=== PATIENT | male | born 1990 | race Caucasian/White ===

== ENCOUNTER 2017-07-04 19:12 | Emergency (ER) | payer MEDICAID, SELFPAY ==
[2017-07-04 19:18] VITALS: BP 156/102; PULSE 100; RESP 18; TEMP 36.8; O2SAT 97; BMI 18.8
[2017-07-04 19:46] LABS: Microscopic, Urine URINE MICROSCOPIC (MICROSCOPIC)
--- NOTE | 2017-07-04 19:47 | CT_ITS ---
CT abdomen pelvis wo con CLINICAL INDICATION: Right flank pain with hematuria ITS.REASON: ABD PAIN ORDERING PHYSICIAN: Regina Dorsey MD PATIENT AGE: 27 years COMPARISON: None TECHNIQUE: Axial images obtained with sagittal and coronal reformats. PROCEDURE: Oral Contrast: None IV Contrast: None . FINDINGS: Lung bases are clear. The liver, gallbladder, spleen, adrenal glands, and pancreas have an unremarkable unenhanced CT appearance. No renal or ureteral calculi or hydronephrosis. No calculi evident within the urinary bladder. Nonspecific nonobstructive bowel gas pattern. No free air. No evidence of appendicitis or diverticulitis. No acute bony anomalies. IMPRESSION: 1. No acute finding. 2. No evidence of obstructing renal or ureteral calculi.
[2017-07-04 19:49] LABS: Basophils % 0.4 % (0.1-2.0); Eosinophils # 0.1 K/mm3 (0.0-0.4); Hematocrit 42.9 % (42.0-52.0); Lymphocytes # 2.3 K/mm3 (0.7-4.5); Lymphocytes % 29.5 K/mm3 (10-50); Mean Corpuscular HGB Conc 35.1 g/dL (31.8-35.4); Mean Corpuscular Hemoglobin 31.7 pg (27.0-31.2); Mean Corpuscular Volume 90.5 fl (80-94); Mean Platelet Volume 8.7 fl (7.4-10.4); Monocytes # 0.5 K/mm3 (0.1-1.0); Monocytes % 6.5 % (1.7-9.3); Neutrophils % 62.7 % (37.0-80.0); Platelet Count 240 K/mm3 (142-424); Red Blood Count 4.74 M/mm3 (4.60-6.20); Red Cell Distribution Width 12.4 % (11.5-17.5); White Blood Count 7.9 K/mm3 (4.8-10.8)
[2017-07-04 19:54] LABS: Appearance,Urine CLEAR (Clear); Bilirubin,Urine Negative (Negative); Blood, Urine Negative (Negative); Color,Urine YELLOW (Yellow); Glucose,Urine (UA) Negative (Negative); Ketones,Urine Negative (Negative); Leukocyte Esterase,Urine Negative (Negative); Nitrate,Urine Negative (Negative); PH,Urine 6.5 (5.0-8.5); Protein,Urine Negative (Negative); Specific Gravity, Urine <= 1.005 (1.005-1.030); Urobilinogen,Urine 0.2 EU/dl (0.2)
--- NOTE | 2017-07-04 20:00 | PC.NURSE ---
PT TO CT
[2017-07-04 20:07] LABS: Bacteria,Urine Trace /lpf
[2017-07-04 20:11] LABS: Alanine Aminotransferase 18 U/L (12-78); Albumin Level 4.5 gm/dL (3.4-5.0); Albumin/Globulin Ratio 1.6 (1.1-1.8); Alkaline Phosphatase 70 U/L (46-116); Anion Gap 14.9 mEq/L (5-15); Bilirubin,Total 0.5 mg/dL (0.2-1.0); Blood Urea Nitrogen 12 mg/dL (7-18); Calcium 8.9 mg/dL (8.5-10.1); Carbon Dioxide 27 mmol/L (21.0-32.0); Chloride 105 mmol/L (98-107); Creatinine Clearance Estimated 100 mL/min (0-300); Creatinine,Serum 0.97 mg/dL (0.70-1.30); Estimated Glomerular Filt Rate 94 ml/min (>60); GFR (African American) 113 ML/MIN (>60); Globulin 2.8 gm/dl (1.3-3.2); Glucose 100 mg/dL (74-106); Sodium 143 mmol/L (136-145); Total Protein,Serum 7.3 gm/dL (6.4-8.2)
--- NOTE | 2017-07-04 20:13 | HMH.EDGENADL ---
ED Disposition Clinical Impression: Abdominal pain Qualifiers: Abdominal location: unspecified location Qualified Code(s): R10.9 - Unspecified abdominal pain Disposition: Home, Self-Care Condition on Discharge: Good Instructions: DI for Abdominal Pain-Adult Additional Instructions: call pcp in am for follow up - Critical Care Critical Care Time: No Attestation: On , the high probability of a clinically significant, sudden or life threatening deterioration of the following system(s) required my full and direct attention, intervention and personal management. The time I documented below is in addition to time spent performing reported procedures but includes the following listed in this critical care notation. Medical Decision Making - Medical Records Medical records reviewed: Yes: I reviewed the patient's medical records. Vital Signs: 07/04/17 19:18 07/04/17 20:32 Temperature 98.2 F 97.8 F Temperature Source Oral Oral Pulse Rate [Right Radial] 100 H 80 Respiratory Rate 18 18 Blood Pressure [Right Arm] 156/102 146/90 Blood Pressure Mean [Right Arm] 120 108 Blood Pressure Source [Right Arm] Automatic Cuff Manual Cuff/ Doppler Blood Pressure Position [Right Arm] Sitting Sitting 02 Sat by Pulse Oximetry 97 98 Oxygen Delivery Method Room Air Room Air - Lab Data Lab results reviewed: Yes: I reviewed the patient's lab results. Lab Results 07/04/17 19:35: Urine Color Yellow, Urine Appearance Clear, Urine pH 6.5, Ur Specific [place] <= 1.005, Urine Protein Negative, Urine Glucose (UA) Negative, Urine Ketones Negative, Urine Blood Negative, Urine Nitrate Negative, Urine Bilirubin Negative, Urine Urobilinogen 0.2, Ur Leukocyte Esterase Negative, Urine RBC None, Urine WBC None, Ur Squamous Epith Cells None, Urine Bacteria Trace 07/04/17 19:35: WBC 7.9, RBC 4.74, Hgb 15.0, Hct 42.9, MCV 90.5, MCH 31.7 H, MCHC 35.1, RDW 12.4, Plt Count 240, MPV 8.7, Neut % (Auto) 62.7, Lymph % (Auto) 29.5, [place] % (Auto) 6.5, Eos % (Auto) 1.0, Baso % (Auto) 0.4, Neut # (Auto) 5.0, Lymph # (Auto) 2.3, [place] # (Auto) 0.5, Eos # (Auto) 0.1, Baso # (Auto) 0.0 07/04/17 19:35: Sodium 143, Potassium 3.9, Chloride 105, Carbon Dioxide 27, Anion Gap 14.9, BUN 12, Creatinine 0.97, Estimated Creat Clear 100, Estimated GFR 94, Est GFR ( Amer) 113, Glucose 100, Calcium 8.9, Total Bilirubin 0.5, AST 18, ALT 18, Alkaline Phosphatase 70, Total Protein 7.3, Albumin 4.5, Globulin 2.8, Albumin/Globulin Ratio 1.6 07/04/17 19:35: Influenza Type A Ag Negative, Influenza Type B Ag Negative Result diagrams: 07/04/17 19:35 07/04/17 19:35 Orders (Tests/Meds): ORDERS Category Date Time Status CT abdomen pelvis wo con Routine Cat Scan 07/04/17 19:[address] abdomen/pelvis request [CT Request abd/pelvis] Exams 07/04/17 19:33 Ordered Stat - CT Data CT Scan: Abdomen, Pelvis Time Received: 21:[address] Reviewed: Yes: I have viewed the radiologist's interpretation Preliminary Findings: Normal/NAD - Uriel Inquiry Pt receiving controlled substance: No General Adult HPI - General Chief complaint: PAIN Stated complaint: dizziness, blood in urine Time Seen by Provider: 07/04/17 20:14 Mode of Arrival: Ambulatory Source of Information: Patient, Medical Record Limitations: No Limitations Description of Symptoms (Recalled from ER Triage Doc. by RN): PT REPORTS ABDOMINAL PAIN, HEMATURIA, DYSURIA WITH PELLETS IN HIS URINE. - History of Present Illness HPI narrative: pt with vomiting with repoted blood in bowels and urine with no rash Onset (ago): day(s) Radiation: non-radiation Severity: moderate Associated symptoms: nausea/vomiting, weakness. negative: fever/chills - Related Data Home Medications Medication Instructions Recorded Confirmed No Known Home Medications [No 07/04/17 07/04/17 Known Home Medications] Allergies Allergy/AdvReac Type Severity Reaction Status Date / Time No Known Allergies Allergy
[2017-07-04 20:17] LABS: Potassium 3.9 mmoL/L (3.5-5.1)
--- NOTE | 2017-07-04 20:17 | ED_ITS ---
ED Disposition Clinical Impression: Abdominal pain Qualifiers: Abdominal location: unspecified location Qualified Code(s): R10.9 - Unspecified abdominal pain Disposition: Home, Self-Care Condition on Discharge: Good Instructions: DI for Abdominal Pain-Adult Additional Instructions: call pcp in am for follow up - Critical Care Critical Care Time: No Attestation: On , the high probability of a clinically significant, sudden or life threatening deterioration of the following system(s) required my full and direct attention, intervention and personal management. The time I documented below is in addition to time spent performing reported procedures but includes the following listed in this critical care notation. Medical Decision Making - Medical Records Medical records reviewed: Yes: I reviewed the patient's medical records. Vital Signs: 07/04/17 19:18 07/04/17 20:32 Temperature 98.2 F 97.8 F Temperature Source Oral Oral Pulse Rate [Right Radial] 100 H 80 Respiratory Rate 18 18 Blood Pressure [Right Arm] 156/102 146/90 Blood Pressure Mean [Right Arm] 120 108 Blood Pressure Source [Right Arm] Automatic Cuff Manual Cuff/ Doppler Blood Pressure Position [Right Arm] Sitting Sitting 02 Sat by Pulse Oximetry 97 98 Oxygen Delivery Method Room Air Room Air - Lab Data Lab results reviewed: Yes: I reviewed the patient's lab results. Lab Results 07/04/17 19:35: Urine Color Yellow, Urine Appearance Clear, Urine pH 6.5, Ur Specific [place] <= 1.005, Urine Protein Negative, Urine Glucose (UA) Negative, Urine Ketones Negative, Urine Blood Negative, Urine Nitrate Negative, Urine Bilirubin Negative, Urine Urobilinogen 0.2, Ur Leukocyte Esterase Negative, Urine RBC None, Urine WBC None, Ur Squamous Epith Cells None, Urine Bacteria Trace 07/04/17 19:35: WBC 7.9, RBC 4.74, Hgb 15.0, Hct 42.9, MCV 90.5, MCH 31.7 H, MCHC 35.1, RDW 12.4, Plt Count 240, MPV 8.7, Neut % (Auto) 62.7, Lymph % (Auto) 29.5, [place] % (Auto) 6.5, Eos % (Auto) 1.0, Baso % (Auto) 0.4, Neut # (Auto) 5.0 , Lymph # (Auto) 2.3, [place] # (Auto) 0.5, Eos # (Auto) 0.1, Baso # (Auto) 0.0 07/04/17 19:35: Sodium 143, Potassium 3.9, Chloride 105, Carbon Dioxide 27, Anion Gap 14.9, BUN 12, Creatinine 0.97, Estimated Creat Clear 100, Estimated GFR 94, Est GFR ( Amer) 113, Glucose 100, Calcium 8.9, Total Bilirubin 0.5, AST 18, ALT 18, Alkaline Phosphatase 70, Total Protein 7.3, Albumin 4.5, Globulin 2.8, Albumin/Globulin Ratio 1.6 07/04/17 19:35: Influenza Type A Ag Negative, Influenza Type B Ag Negative Result diagrams: 07/04/17 19:35 07/04/17 19:35 Orders (Tests/Meds): ORDERS Category Date Time Status CT abdomen pelvis wo con Routine Cat Scan 07/04/17 19:[address] abdomen/pelvis request [CT Request abd/pelvis] Exams 07/04/17 19:33 Ordered Stat - CT Data CT Scan: Abdomen, Pelvis Time Received: 21:[address] Reviewed: Yes: I have viewed the radiologist's interpretation Preliminary Findings: Normal/NAD - Uriel Inquiry Pt receiving controlled substance: No General Adult HPI - General Chief complaint: PAIN Stated complaint: dizziness, blood in urine Time Seen by Provider: 07/04/17 20:14 Mode of Arrival: Ambulatory Source of Information: Patient, Medical Record Limitations: No Limitations Description of Symptoms (Recalled from ER Triage Doc. by RN): PT REPORTS ABDOMINAL PAIN, HEMATURIA, DYSURIA WITH PELLETS I
[2017-07-04 20:18] LABS: Aspartate Amino Transferase 18 U/L (15-37)
[2017-07-04 20:32] VITALS: BP 146/90; PULSE 80; RESP 18; TEMP 36.6; O2SAT 98
== END 2017-07-04 21:28 | disposition home or self-care (01) ==
PROVIDERS: Emergency Provider Emergency Medicine; Family Provider Emergency Medicine
DX: R10.9 Unspecified abdominal pain (principal)
CPT/HCPCS: 74176; 80053; 81001; 85025; 87275; 87276; 99284

== ENCOUNTER → 2018-11-28 18:50 | Outpatient (CLI) | payer MEDICAID, SELFPAY ==
[2018-11-28 19:21] LABS: Alanine Aminotransferase 23 U/L (12-78); Albumin Level 4.7 gm/dL (3.4-5.0); Albumin/Globulin Ratio 1.5 (1.1-1.8); Alkaline Phosphatase 70 U/L (46-116); Anion Gap 13.7 mEq/L (5-15); Aspartate Amino Transferase 14 U/L (15-37); Bilirubin,Total 0.7 mg/dL (0.2-1.0); Blood Urea Nitrogen 20 mg/dL (7-18); Calcium 9.6 mg/dL (8.5-10.1); Carbon Dioxide 28 mmol/L (21.0-32.0); Chloride 103 mmol/L (98-107); Chol/HDL Ratio 3.4 (1-3.5); Cholesterol 168 mg/dL (140-200); Creatinine,Serum 1.02 mg/dL (0.70-1.30); Estimated Glomerular Filt Rate 88 ml/min (>60); Free T4 (Free Thyroxine) 1.02 ng/dl (0.76-1.46); GFR (African American) 106 ML/MIN (>60); Globulin 3.2 gm/dl (1.3-3.2); Glucose 88 mg/dL (74-106); HDL Cholesterol 50 mg/dL (27-67); LDL Cholesterol 100 mg/dL (0-130); Potassium 4.7 mmoL/L (3.5-5.1); Sodium 140 mmol/L (136-145); Thyroid Stimulating Hormone 1.78 uIU/ml (0.358-3.740); Total Protein,Serum 7.9 gm/dL (6.4-8.2); Triglycerides 92 mg/dL (30-200); VLDL Cholesterol 18 mg/dL (0-40)
[2018-11-28 19:26] LABS: Basophils % 0.1 % (0.1-2.0); Eosinophils % 0.4 % (0.1-12.0); Hematocrit 44.6 % (42.0-52.0); Hemoglobin 14.9 g/dL (14.1-18.0); Lymphocytes # 1.2 K/mm3 (0.7-4.5); Lymphocytes % 18.3 % (10-50); Mean Corpuscular HGB Conc 33.5 g/dL (31.8-35.4); Mean Corpuscular Hemoglobin 30.3 pg (27.0-31.2); Mean Corpuscular Volume 90.4 fl (80-94); Mean Platelet Volume 10.5 fl (7.4-10.4); Monocytes # 0.6 K/mm3 (0.1-1.0); Monocytes % 8.9 % (1.7-9.3); Neutrophils # 4.8 K/mm3 (1.8-7.8); Neutrophils % 72.4 % (37.0-80.0); Platelet Count 221 K/mm3 (142-424); Red Blood Count 4.93 M/mm3 (4.60-6.20); Red Cell Distribution Width 12.6 % (11.5-17.5); White Blood Count 6.6 K/mm3 (4.8-10.8)
[2018-11-30 07:18] LABS: Hep A Ab, IgM Negative (Negative); Hepatitis B Core Antibody IgM Negative (Negative); Hepatitis B Surface Antigen Negative (Negative)
[2018-11-30 20:48] LABS: Hepatitis C Antibody <0.1 s/co ratio (0.0-0.9); Vitamin D 25 Hydroxy 41.6 ng/mL (30.0-100.0)
== END ==
PROVIDERS: Visit Provider Emergency Medicine
DX: R10.9 Unspecified abdominal pain (principal)
CPT/HCPCS: 80053; 80061; 80074; 82652; 84439; 84443; 85025

== ENCOUNTER → 2019-03-19 11:43 | Outpatient (CLI) | payer MEDICAID, SELFPAY ==
--- NOTE | 2019-03-19 | ECG_ITS ---
APPROVED REPORT Exam: Resting ECG HR:64 bpm ECG Measurements Heart Rate 64 AXES MT 144 P 69 QRSd 86 QRS 80 QT 384 T 59 QTc 396 <Conclusion> Normal sinus rhythm Normal ECG Electronically signed by : Bernabe Call, 03/22/2019 09:47:43
--- NOTE | 2019-03-19 12:07 | XR_ITS ---
PROCEDURE: XR CHEST 2V CLINICAL HISTORY: anxiety Chest pain COMPARISON: CXR CHEST(2 VIEWS-NOT PORTABLE) from 03/23/2014 CXR CHEST(2 VIEWS-NOT PORTABLE) from 11/16/2014 CXR CHEST(2 VIEWS-NOT PORTABLE) from 01/15/2015 FINDINGS: The cardiomediastinal silhouette and pulmonary vascularity are within normal limits. There is an oval 12 x 6 mm nodule in the right upper lobe. This is noncalcified. The remaining lungs are clear. No acute bony anomalies. No acute bony abnormalities. IMPRESSION: Indeterminate 12 mm nodule right upper lobe. Suggest chest CT with contrast for further evaluation Dictated by: Emerson Arguello MD 03/19/2019 12:33 Electronically signed by Emerson Arguello MD in [place] 03/19/2019 12:33
[2019-03-19 12:42] LABS: Basophils % 0.3 % (0.1-2.0); Eosinophils # 0.1 K/mm3 (0.0-0.4); Eosinophils % 1.5 % (0.1-12.0); Hemoglobin 13.7 g/dL (14.1-18.0); Lymphocytes # 1.6 K/mm3 (0.7-4.5); Lymphocytes % 24.7 % (10-50); Mean Corpuscular HGB Conc 32.5 g/dL (31.8-35.4); Mean Corpuscular Hemoglobin 31.5 pg (27.0-31.2); Mean Corpuscular Volume 96.9 fl (80-94); Mean Platelet Volume 9.3 fl (7.4-10.4); Monocytes # 0.4 K/mm3 (0.1-1.0); Monocytes % 6.8 % (1.7-9.3); Neutrophils # 4.4 K/mm3 (1.8-7.8); Neutrophils % 66.8 % (37.0-80.0); Platelet Count 204 K/mm3 (142-424); Red Blood Count 4.33 M/mm3 (4.60-6.20); Red Cell Distribution Width 12.7 % (11.5-17.5); White Blood Count 6.6 K/mm3 (4.8-10.8)
[2019-03-19 13:31] LABS: Alanine Aminotransferase 15 U/L (12-78); Albumin Level 3.9 gm/dL (3.4-5.0); Albumin/Globulin Ratio 1.4 (1.1-1.8); Alkaline Phosphatase 58 U/L (46-116); Anion Gap 12.2 mEq/L (5-15); Aspartate Amino Transferase 18 U/L (15-37); Bilirubin,Total 0.3 mg/dL (0.2-1.0); Blood Urea Nitrogen 13 mg/dL (7-18); Calcium 9.2 mg/dL (8.5-10.1); Carbon Dioxide 28 mmol/L (21.0-32.0); Chloride 105 mmol/L (98-107); Creatinine,Serum 0.97 mg/dL (0.70-1.30); Estimated Glomerular Filt Rate 92 ml/min (>60); GFR (African American) 112 ML/MIN (>60); Globulin 2.8 gm/dl (1.3-3.2); Glucose 90 mg/dL (74-106); Potassium 4.2 mmoL/L (3.5-5.1); Sodium 141 mmol/L (136-145); Total Protein,Serum 6.7 gm/dL (6.4-8.2); Troponin I < 0.02 ng/ml (0.00-0.06)
[2019-03-21 17:47] LABS: Ferritin 65 ng/mL (8-388)
[2019-03-23 05:08] LABS: Iron 57 ug/dL (38-169); UIBC 191 ug/dL (111-343)
[2019-03-23 13:48] LABS: Iron Saturation 23 % (15-55)
== END ==
PROVIDERS: Physician Assistant; PCP Emergency Medicine; Visit Provider Emergency Medicine
DX: R07.9 Chest pain, unspecified (principal); F41.9 Anxiety disorder, unspecified; D64.9 Anemia, unspecified
CPT/HCPCS: 36415; 71046; 80053; 82728; 83540; 83550; 84484; 85025; 93005

== ENCOUNTER → 2019-04-03 12:15 | Outpatient (CLI) | payer MEDICAID, SELFPAY ==
--- NOTE | 2019-04-03 12:16 | CA_ITS ---
APPROVED REPORT EXAM: Comprehensive 2D, Doppler, and color-flow Echocardiogram Pediatrician/Medical Doctor: Sandra Will RDCS Ht: 5 ft 11 in Wt: 140lbs BSA: 1.81 BP: 110/68 mmHg Indications: Chest Pain, Murmur, Shortness of Breath, Hypertension/HDD 2D Dimensions LVOT 2.20 cm (M/F) 1.5-2.5 M-Mode Dimensions RVDd 2.00 cm (0.9-2.6) LA Diam 2.90 cm (1.9-4.0) LVDd 5.40 cm (3.5-5.7) Ao Diam 3.00 cm (2.0-3.7) LVDs 4.20 cm (3.5-5.7) AV Cusp 2.20 cm (1.5-2.6) IVSd 0.70 cm (0.6-1.1) PWd 0.80 cm (0.6-1.1) EF (Teich) 44.30% FS 22.20% EDV (Teich) 141.00 mL ESV (Teich) 78.60 mL LV Diastology E/A Ratio 1.1 MED E' 8.58 (< 7 cm/sec) E'/MED E' Ratio 6.80 (>14) LAT E' 13.90 (<10 cm/sec) E/LAT E' Ratio 4.20 (>14) Mitral Valve MV E Max Oliver. 58.70 (40-130 cm/s) MV A Velocity 51.30 (40-130 cm/s) E/A Ratio 1.10 Left Ventricle Left atrium is normal size, left ventricle is normal size, there is no concentric left ventricular hypertrophy, visually estimated ejection fraction 55% with no regional wall motion abnormality, diastolic parameters are within normal range. Right Ventricle Right atrium and right ventricular normal size and contractility. Aortic Valve Aortic valve is grossly normal, there is no aortic stenosis aortic insufficiency. Mitral Valve Mitral valve is grossly normal, there is no mitral stenosis, there is mild mitral regurgitation. Tricuspid Valve Tricuspid valve is grossly normal, there is mild tricuspid regurgitation. Pulmonic Valve Pulmonic valve is grossly normal. Great Vessels Aortic root is normal size. Pericardium No significant pericardial effusion noted. Conclusion 1. Normal left ventricular size, preserved left ventricular systolic function, visually estimated ejection fraction 55% with no regional wall motion abnormality, diastolic parameters are within normal range. 2. Mild mitral and tricuspid regurgitation 3. No significant pericardial effusion noted. Electronically signed by : Kurtis Love, 04/04/2019 14:46:14
== END ==
PROVIDERS: PCP Emergency Medicine; Visit Provider Emergency Medicine
DX: R01.1 Cardiac murmur, unspecified (principal); R07.9 Chest pain, unspecified
CPT/HCPCS: 93306

== ENCOUNTER → 2019-04-10 09:12 | Outpatient (CLI) | payer MEDICAID, SELFPAY ==
--- NOTE | 2019-04-10 09:14 | CT_ITS ---
PROCEDURE: CT CHEST W CON CLINCAL INDICATION: indeterminate nodule Indeterminate pulmonary nodule, abnormal chest x-ray COMPARISON: [facility] CT abdomen pelvis wo con from 07/04/2017 XR CHEST 2V from 03/19/2019 TECHNIQUE: IV Contrast: 75ml Optiray 350 Axial images obtained with sagittal and coronal reformats. All CT scans at the facility use one or more dose reduction, viz: automated exposure control, ma/kV adjustment per patient size (including targeted exams where dose is matched to indication, i.e. head), or iterative reconstruction technique. FINDINGS: HEART: Unremarkable. Normal heart size. No significant pericardial effusion. MEDIASTINAL AND HILAR STRUCTURES: No mediastinal or hilar mass evident. No dominant adenopathy. PULMONARY ARTERIES: No pulmonary embolus evident. AORTA: No acute finding. No thoracic aortic aneurysm or dissection evident. LUNGS: THERE IS A 7 MM NODULE WITHIN THE RIGHT UPPER LOBE POSTERIORLY CORRESPONDING TO THE RECENTLY MENTION RADIOGRAPHIC ABNORMALITY. THE NODULE DOES CONTAIN CALCIFICATION AND IS CONSISTENT WITH A GRANULOMA. THERE IS AN ADDITIONAL NODULE IN THE LEFT APEX MEASURING 6 X 4 MM ALSO CONTAINING CALCIFICATION CONSISTENT WITH A GRANULOMA. PLEURAL SPACES: No significant effusion. No evidence of pneumothorax. BONY STRUCTURES: No acute bony abnormalities apparent. LYMPH NODES: No enlarged lymph nodes evident. 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 This is on the edge of the imaging field. This could be confirmed with CT angiography of the abdominal aorta if clinically desired. ADDITIONAL FINDINGS: No other significant abnormalities. IMPRESSION: 1. Right upper and left upper lobe nodules are present and are consistent with partially calcified granulomas. 2. 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
== END ==
PROVIDERS: PCP Emergency Medicine; Visit Provider Physician Assistant
DX: R91.1 Solitary pulmonary nodule (principal)
CPT/HCPCS: 71260; Q9967

== ENCOUNTER 2021-04-09 02:37 | Emergency (ER) | payer MEDICAID, SELFPAY ==
[2021-04-09] VITALS (13 sets, daily range): BP systolic 92–119; BP diastolic 58–87; PULSE 69–82; RESP 16; TEMP 36.7; O2SAT 96–98; BMI 23.6
--- NOTE | 2021-04-09 02:51 | HMH.EDGENADL ---
ED Disposition Clinical Impression: Alcoholic intoxication Qualifiers: Complication of substance-induced condition: uncomplicated Qualified Code(s): F10.920 - Alcohol use, unspecified with intoxication, uncomplicated Disposition: Home, Self-Care Condition on Discharge: Good Referrals: Abhinav Medina MD [Primary Care Provider] - 3 days Time of Disposition: 07:15 - Critical Care Critical Care Time: No Attestation: On , the high probability of a clinically significant, sudden or life threatening deterioration of the following system(s) required my full and direct attention, intervention and personal management. The time I documented below is in addition to time spent performing reported procedures but includes the following listed in this critical care notation. Medical Decision Making - Medical Records Medical records reviewed: Yes: I reviewed the patient's medical records. - Uriel Inquiry Pt receiving controlled substance: No Vital Signs: 04/09/21 02:37 04/09/21 03:00 04/09/21 03:30 Pulse Rate 79 71 Pulse Rate [Apical] 79 Respiratory Rate 16 Blood Pressure 108/78 L 103/67 L Blood Pressure [Right Arm] 119/87 Blood Pressure Mean 86 79 Blood Pressure Mean [Right Arm] 97 Blood Pressure Source [Right Arm] Automatic Cuff Blood Pressure Position [Right Arm] Sitting 02 Sat by Pulse Oximetry 98 96 97 Oxygen Delivery Method Room Air Room Air Room Air 04/09/21 04:00 04/09/21 04:30 04/09/21 05:00 Pulse Rate 75 78 72 Pulse Rate [Apical] Respiratory Rate Blood Pressure 106/74 L 100/72 L 92/63 L Blood Pressure [Right Arm] Blood Pressure Mean 86 80 72 Blood Pressure Mean [Right Arm] Blood Pressure Source [Right Arm] Blood Pressure Position [Right Arm] 02 Sat by Pulse Oximetry 98 96 98 Oxygen Delivery Method Room Air Room Air Room Air 04/09/21 05:12 04/09/21 05:31 04/09/21 06:00 Pulse Rate 77 71 69 Pulse Rate [Apical] Respiratory Rate Blood Pressure 101/58 L 112/71 105/70 L Blood Pressure [Right Arm] Blood Pressure Mean 74 84 79 Blood Pressure Mean [Right Arm] Blood Pressure Source [Right Arm] Blood Pressure Position [Right Arm] 02 Sat by Pulse Oximetry 97 96 97 Oxygen Delivery Method Room Air Room Air Room Air 04/09/21 06:30 Pulse Rate 73 Pulse Rate [Apical] Respiratory Rate Blood Pressure 103/69 L Blood Pressure [Right Arm] Blood Pressure Mean 86 Blood Pressure Mean [Right Arm] Blood Pressure Source [Right Arm] Blood Pressure Position [Right Arm] 02 Sat by Pulse Oximetry 98 Oxygen Delivery Method Room Air - Lab Data Lab results reviewed: Yes: I reviewed the patient's lab results. Lab Results 04/09/21 04:00: WBC 6.1, RBC 4.10 L, Hgb 13.2 L, Hct 39.1 L, MCV 95.4 H, MCH 32.2 H, MCHC 33.7, RDW 13.2, Plt Count 247, MPV 8.4, Neut % (Auto) 74.3, Lymph % (Auto) 19.5, [place] % (Auto) 5.6, Eos % (Auto) 0.3, Baso % (Auto) 0.3, Neut # (Auto) 4.5, Lymph # (Auto) 1.2, [place] # (Auto) 0.3, Eos # (Auto) 0.0, Baso # (Auto) 0.0 04/09/21 04:00: Sodium 145, Potassium 3.6, Chloride 106, Carbon Dioxide 28, Anion Gap 14.6, BUN 9, Creatinine 0.80, Estimated Creat Clear 134, Estimated GFR 114, Est GFR ( Amer) 137, Glucose 125 H, Calcium 8.3 L, Total Bilirubin 0.1 L, AST 22, ALT 12, Alkaline Phosphatase 57, Total Protein 6.3, Albumin 4.0, Globulin 2.3, Albumin/Globulin Ratio 1.7 04/09/21 04:00: Plasma/Serum Alcohol 168 H Result diagrams: 04/09/21 04:00 04/09/21 04:00 Orders (Tests/Meds): ED MEDICATIONS Discontinued Medications Generic Name Dose Route Start Last Admin Trade Name Freq PRN Reason Stop Dose Admin Sodium Chloride 1,000 mls @ 999 mls/hr 04/09/21 03:00 04/09/21 03:45 Sod Chlor 0.9% 1000ml Bag IV 04/09/21 04:00 999 mls/hr .Q1H1M AMY Administration Sodium Chloride 1,000 mls @ 999 mls/hr 04/09/21 05:30 04/09/21 05:31 Sod Chlor 0.9% 1000ml Bag IV 04/09/21 06:30 999 mls/hr .Q1H1M AMY Administration Medical
[2021-04-09 04:10] LABS: Basophils % 0.3 % (0.1-2.0); Eosinophils % 0.3 % (0.1-12.0); Hematocrit 39.1 % (42.0-52.0); Hemoglobin 13.2 g/dL (14.1-18.0); Lymphocytes # 1.2 K/mm3 (0.7-4.5); Lymphocytes % 19.5 % (10-50); Mean Corpuscular HGB Conc 33.7 g/dL (31.8-35.4); Mean Corpuscular Hemoglobin 32.2 pg (27.0-31.2); Mean Corpuscular Volume 95.4 fl (80-94); Mean Platelet Volume 8.4 fl (7.4-10.4); Monocytes # 0.3 K/mm3 (0.1-1.0); Monocytes % 5.6 % (1.7-9.3); Neutrophils # 4.5 K/mm3 (1.8-7.8); Neutrophils % 74.3 % (37.0-80.0); Platelet Count 247 K/mm3 (142-424); Red Cell Distribution Width 13.2 % (11.5-17.5); White Blood Count 6.1 K/mm3 (4.8-10.8)
[2021-04-09 04:14] LABS: Chloride 106 mmol/L (98-107); Potassium 3.6 mmoL/L (3.5-5.1); Sodium 145 mmol/L (136-145)
[2021-04-09 04:17] LABS: Alanine Aminotransferase 12 U/L (12-78); Albumin/Globulin Ratio 1.7 (1.1-1.8); Alkaline Phosphatase 57 U/L (38-126); Anion Gap 14.6 mEq/L (5-15); Aspartate Amino Transferase 22 U/L (17-59); Blood Urea Nitrogen 9 mg/dl (9-20); Calcium 8.3 mg/dl (8.4-10.2); Carbon Dioxide 28 mmol/L (22.0-30.0); Creatinine Clearance Estimated 134 mL/min (50-200); Estimated Glomerular Filt Rate 114 ml/min (>60); GFR (African American) 137 ML/MIN (>60); Globulin 2.3 g/dL (1.3-3.2); Glucose 125 mg/dl (74-100); Total Protein,Serum 6.3 g/dl (6.3-8.2)
[2021-04-09 04:18] LABS: Bilirubin,Total 0.1 mg/dl (0.2-1.3)
[2021-04-09 04:20] LABS: Ethyl Alcohol 168 mg/dl (0-10)
--- NOTE | 2021-04-09 07:22 | PC.NURSE ---
Notified Nanci Rudd, patients emergency contact to request she come and pick him up as he is now deemed safe to discharge to home per md.
--- NOTE | 2021-04-09 07:22 | PC.NURSE ---
called pt's ride, they will be here ~ 15min.
== END 2021-04-09 08:11 | disposition home or self-care (01) ==
PROVIDERS: Emergency Provider Family Medicine; PCP Emergency Medicine
DX: F10.920 Alcohol use, unspecified with intoxication, uncomplicated (principal)
CPT/HCPCS: 80053; 85025; 96365; 96366; 99282

== ENCOUNTER 2021-12-15 21:39 | Emergency (ER) | payer MEDICAID, SELFPAY ==
[2021-12-15 21:37] VITALS: BP 147/98; PULSE 88; RESP 18; TEMP 37.1; O2SAT 97; BMI 20.2
--- NOTE | 2021-12-15 23:08 | HMH.EDANIB ---
ED Disposition Clinical Impression: Dog bite Qualifiers: Encounter type: initial encounter Qualified Code(s): W54.0XXA - Bitten by dog, initial encounter Disposition: Home, Self-Care Condition on Discharge: Good Instructions: Animal Bites Additional Instructions: keep clean and see pcp for follow up Prescriptions: Amoxicillin/Potassium Clav [Augmentin 500mg tab] 500 mg PO BID #20 tab Transmission Status: Pending to [facility] Ketorolac Tromethamine [Toradol 10mg tablet] 10 mg PO Q6HP PRN #8 tab MDD 40mg/day PRN Reason: Moderate To Severe Pain Transmission Status: Pending to [facility] Referrals: Abhinav Medina MD [Primary Care Provider] - - Critical Care Critical Care Time: No Attestation: On 12/15/21, the high probability of a clinically significant, sudden or life threatening deterioration of the following system(s) required my full and direct attention, intervention and personal management. The time I documented below is in addition to time spent performing reported procedures but includes the following listed in this critical care notation. Medical Decision Making - Medical Records Medical records reviewed: Yes: I reviewed the patient's medical records. - Uriel Inquiry Pt receiving controlled substance: No Vital Signs: 12/15/21 21:37 Temperature 98.7 F Temperature Source Oral Pulse Rate [Left] 88 Respiratory Rate 18 Blood Pressure [Left Arm] 147/98 H Blood Pressure Mean [Left Arm] 114 02 Sat by Pulse Oximetry 97 Oxygen Delivery Method Room Air Orders (Tests/Meds): ED MEDICATIONS Discontinued Medications Generic Name Dose Route Start Last Admin Trade Name Freq PRN Reason Stop Dose Admin Acetaminophen/Codeine Phosphate 1 packet 12/15/21 23:06 12/15/21 23:06 Acetaminophen 300mg W/Codeine 30mg Take Home Pack (6) PO 12/15/21 23:07 1 packet ONCE ONE Administration Amoxicillin/Clavulanate Potassium 1 each 12/15/21 23:02 12/15/21 23:07 Amoxicillin/Pot Clavulan 500mg Tablet PO 12/15/21 23:03 1 each ONCE ONE Administration Ketorolac Tromethamine 60 mg 12/15/21 23:02 12/15/21 23:06 Ketorolac 60mg/2ml Vial IM 12/15/21 23:03 60 mg ONCE ONE Administration Medical Decision Narrative: known dog with bite - no sutures and will cover with abx Animal Bite HPI - General Chief Complaint: Animal Bite Stated Complaint: dog bite Time Seen by Provider: 12/15/21 22:00 Mode of Arrival: EMS Source of Information: Patient, EMS, Medical Record Limitations: No Limitations Description of Symptoms (Recalled from ER Triage Doc. by RN): pt stated that he was bit by a blue pit bull and that it grabbed him by the right arm then bit him on the right but cheek. pt has 3 small puncture wounds and a scrape on the right forarm amd 1 puncture woumd and a scrape on the buttock - History of Present Illness HPI narrative: dog bite rt forearm and rt gluteal area shilpi - complaint: animal bite Onset (ago): hour(s) Animal: dog Description of animal: appeared well Mechanism: bite Location: other (rt gluteal) Right: forearm Pain description: sharp Context: unprovoked Associated symptoms: none - Related Data Patient tetanus UTD: Yes Previous Rx's Medication Instructions Recorded ferrous sulfate 325 mg (65 mg 325 mg PO DAILY #30 tab 09/20/19 iron) tablet lisinopril 5 mg tablet See Rx Instructions .ROUTE 06/29/20 .COMPLEX #90 tab Amoxicillin/Potassium Clav 500 mg PO BID #20 tab 12/15/21 [Augmentin 500mg tab] Ketorolac Tromethamine [Toradol 10 mg PO Q6HP PRN #8 tab MDD 12/15/21 10mg tablet] 40mg/day Allergies Allergy/AdvReac Type Severity Reaction Status Date / Time No Known Allergies Allergy Verified 12/09/20 09:44 [facility] History - Hepatitis A Screen Attestation statement:: This patient has been screened for Hepatitis A risk factors. I have reviewed the patient's past medical history: Yes Med
--- NOTE | 2021-12-15 23:12 | PC.NURSE ---
Antonette Mae at bedside cleaning wounds and bandaging them. PT medicated per AUG. Advised him MD was finishing up chart and he would be d/c'ed shortly
[2021-12-15 23:15] VITALS: BP 130/68; PULSE 70; RESP 16; TEMP 36.8; O2SAT 98
--- NOTE | 2021-12-15 23:23 | PC.NURSE ---
dispatch called for pt ride home
--- NOTE | 2021-12-15 23:23 | PC.NURSE ---
PC made for patient to be picked up for transport home
== END 2021-12-15 23:27 | disposition home or self-care (01) ==
PROVIDERS: Emergency Provider Emergency Medicine; PCP Emergency Medicine
DX: S51.851A Open bite of right forearm, initial encounter (principal); S31.815A Open bite of right buttock, initial encounter; W54.0XXA Bitten by dog, initial encounter
CPT/HCPCS: 99283

== ENCOUNTER → 2022-04-18 09:10 | Outpatient (CLI) | payer MEDICAID, SELFPAY ==
[2022-04-19 15:02] LABS: Basophils % 0.8 % (0.1-2.0); Eosinophils # 0.1 K/mm3 (0.0-0.4); Hematocrit 45.3 % (42.0-52.0); Hemoglobin 14.9 g/dL (14.1-18.0); Lymphocytes # 1.5 K/mm3 (0.7-4.5); Lymphocytes % 28.8 % (10-50); Mean Corpuscular Hemoglobin 31.5 pg (27.0-31.2); Mean Corpuscular Volume 95.6 fl (80-94); Mean Platelet Volume 10.6 fl (7.4-10.4); Monocytes # 0.4 K/mm3 (0.1-1.0); Monocytes % 8.7 % (1.7-9.3); Neutrophils # 3.1 K/mm3 (1.8-7.8); Neutrophils % 60.7 % (37.0-80.0); Platelet Count 248 K/mm3 (142-424); Red Blood Count 4.74 M/mm3 (4.60-6.20); Red Cell Distribution Width 13.2 % (11.5-17.5); White Blood Count 5.1 K/mm3 (4.8-10.8)
[2022-04-19 15:16] LABS: Alanine Aminotransferase 20 U/L (12-78); Albumin Level 4.3 g/dl (3.5-5.0); Albumin/Globulin Ratio 1.6 (1.1-1.8); Alkaline Phosphatase 61 U/L (38-126); Anion Gap 16.5 mEq/L (5-15); Aspartate Amino Transferase 28 U/L (17-59); Blood Urea Nitrogen 16 mg/dl (9-20); Calcium 9.1 mg/dl (8.4-10.2); Carbon Dioxide 27 mmol/L (22.0-30.0); Chloride 103 mmol/L (98-107); Cholesterol 150 mg/dl (140-200); Estimated Glomerular Filt Rate 78 ml/min (>60); GFR (African American) 94 ML/MIN (>60); Globulin 2.7 g/dL (1.3-3.2); Glucose 89 mg/dl (74-100); HDL Cholesterol 50 mg/dl (40-60); Potassium 4.5 mmoL/L (3.5-5.1); Sodium 142 mmol/L (136-145); Triglycerides 77 mg/dl (30-150); VLDL Cholesterol 15 mg/dL (0-40)
[2022-04-19 15:27] LABS: Direct LDL Cholesterol 73.35 mg/dL (100-129)
[2022-04-19 15:35] LABS: 25-OH Vitamin D, Total 40.8 ng/mL (30-100)
[2022-04-19 15:46] LABS: Thyroid Stimulating Hormone 1.48 uIU/mL (0.465-4.68)
[2022-04-19 16:21] LABS: Vitamin B12 358 pg/mL (239-931)
[2022-04-19 16:32] LABS: Folate 6.21 ng/mL
[2022-04-19 18:19] LABS: Iron 191 ug/dL (49-181)
[2022-04-19 18:28] LABS: Total Iron Binding Capacity 321 ug/dL (261-462)
== END ==
PROVIDERS: PCP Student in an Organized Health Care Education/Training Program; Visit Provider Student in an Organized Health Care Education/Training Program
DX: R53.83 Other fatigue (principal); R20.0 Anesthesia of skin; R20.2 Paresthesia of skin
CPT/HCPCS: 80053; 80061; 82306; 82607; 82746; 83540; 83550; 84443; 85025

== ENCOUNTER 2023-02-07 15:35 | Emergency (ER) | payer MEDICAID, SELFPAY ==
[2023-02-07 15:35] VITALS: BP 138/92; PULSE 81; RESP 19; TEMP 36.6; O2SAT 97; BMI 19.0
--- NOTE | 2023-02-07 15:35 | XR_ITS ---
PROCEDURE INFORMATION: Exam: XR Chest Exam date and time: 02/07/2023 4:08 PM Age: 33 years old Clinical indication: Cough TECHNIQUE: Imaging protocol: Radiologic exam of the chest. Views: 1 view. COMPARISON: CR XR CHEST 2V 05/10/2019 6:55 PM FINDINGS: Lungs: No evidence of pneumonia or interstitial edema. Pleural spaces: Unremarkable. No pleural effusion. No pneumothorax. Heart/Mediastinum: Unremarkable. No cardiomegaly. Bones/joints: Unremarkable. IMPRESSION: No evidence of pneumonia or interstitial edema.
--- NOTE | 2023-02-07 15:35 | CT_ITS ---
PROCEDURE INFORMATION: Exam: CT Abdomen And Pelvis With Contrast Exam date and time: 02/07/2023 4:25 PM Age: 33 years old Clinical indication: Abdominal pain; Flank; Right; Additional info: R flank, ruq pain TECHNIQUE: Imaging protocol: Computed tomography of the abdomen and pelvis with contrast. Radiation optimization: All CT scans at this facility use at least one of these dose optimization techniques: automated exposure control; mA and/or kV adjustment per patient size (includes targeted exams where dose is matched to clinical indication); or iterative reconstruction. Contrast material: ISOVUE; Contrast volume: 75 ml; Contrast route: IV; REPORTING DATA: Count of CT and Cardiac NM exams in prior 12 months: This patient has received 0 known CTs and 0 known cardiac nuclear medicine studies in the 12 months prior to the current study. COMPARISON: CT ABDOMEN PELVIS W CON 05/10/2019 7:08 PM FINDINGS: Lungs: Lung bases are unremarkable. Liver: No focal hepatic lesions. Gallbladder and bile ducts: Gallbladder is distended without radiopaque cholelithiasis. No biliary ductal dilation. Pancreas: No peripancreatic fluid stranding. No main pancreatic ductal dilation. Spleen: No splenomegaly. Adrenal glands: The adrenal glands are normal. Kidneys and ureters: Nephrograms are symmetric. No nephrolithiasis or hydroureteronephrosis on either side. No solid lesions Stomach and bowel: No bowel wall thickening or distention. Appendix: A normal appendix is not well visualized. However, no evidence of inflammatory changes in the right lower quadrant to suggest acute appendicitis. Intraperitoneal space: There is no evidence of free intraperitoneal or pelvic fluid. Vasculature: Aorta is nonaneurysmal. Lymph nodes: No evidence of retroperitoneal or mesenteric lymphadenopathy. Urinary bladder: Urinary bladder is unremarkable. Reproductive: Unremarkable as visualized. Bones/joints: No acute osseous abnormality. Soft tissues: Unremarkable. IMPRESSION: No acute abnormality in the abdomen or pelvis
--- NOTE | 2023-02-07 15:37 | [facility].EDGENADL ---
Discharge Plan Disposition Chief Complaint: Fall Prescriptions Prescriptions: No Action No Known Home Medications Referrals Follow up/Referrals: Provider,Referral, [Primary Care Provider] - See instructions Activity Restrictions/Add. Instructions Additional Instructions/Restrictions: At this time it was felt you are safe to be discharged home. If new or worsening symptoms please do not hesitate to return the emergency department. Please follow-up with your family doctor in 1 week should symptoms persist. Please slowly advance your diet and avoid heavy greasy foods in the next few days. Clinical Impressions Clinical Impression: Pancreatitis, Cough Discharge ED Provider: Sukhjinder Avendaño General Adult HPI General Chief complaint: Fall Stated complaint: abd pain Time Seen by Provider: 02/07/23 15:37 History of Present Illness HPI narrative: Patient is a 33-year-old male with no pertinent past medical history presents emergency department via EMS for evaluation of multiple complaints. There is conflicting stories. History obtained by patient at bedside states that he had bilateral spontaneous nosebleed while having a picnic on the back of his truck. Patient then became lightheaded, had a coughing fit, fell over striking his right shoulder. Patient not completely lose consciousness, did not strike his head, denies blood thinners. Patient states he has had persistent cough for approximately 1 week. He has had associated right flank and right upper quadrant abdominal pain with his cough. No vomiting, no diarrhea, no dysuria. No other acute complaints at this time. Patient denies chest pain or substance abuse. Bilateral nosebleed stopped prior to arrival. Related Data Home Medications Medication Instructions Recorded Confirmed No Known Home Medications 09/16/22 09/16/22 Allergies Allergy/AdvReac Type Severity Reaction Status Date / Time No Known Allergies Allergy Verified 09/16/22 10:24 [facility] Disclaimer: The information contained in this section may have been updated after the patient was seen, as this information can be updated by other users. Social History Smoking Status: Never smoker alcohol intake: never substance use type: denies use current occupational status: employed and disabled Travel in the last 8 weeks: Inside the [place] household members: family housing: house number of children: 0 ROS Obtained: Yes Systems reviewed as appropriate & no additional complaints except as documented Physical Exam General General appearance: alert and in no apparent distress Head Head exam: atraumatic and normocephalic Eye Eye exam: Present PERRL and EOMI ENT ENT exam: Present other (Dried blood bilateral nares, no ongoing hemorrhage, no nasal septal hematoma, nose is aligned, no blood in the posterior oropharynx.) Neck Neck exam: Present normal inspection Chest Chest inspection: Present normal inspection and symmetric chest wall rise Respiratory Respiratory exam: Present normal lung sounds bilaterally; Absent respiratory distress Cardiovascular Cardiovascular exam: Present regular rate and normal rhythm Abdominal Exam Abdominal exam: Present soft and tenderness (Mild, right upper quadrant, right flank.) Extremities Exam Extremities exam: Present normal inspection and full ROM (Full active and passive range of motion right shoulder. No tenderness right shoulder. Palpable right radial pulse.) Neurological Exam Neurological exam: Present alert Psychiatric Psychiatric exam: Present normal affect Skin Skin exam: Present warm and dry Medical Decision Making Uriel Inquiry Pt receiving controlled substance: No Vital Signs: 02/07/23 15:35 02/07/23 16:00 02/07/23 16:45 Temperature 97.9 F Temperature Source Oral Pulse Rate 83 72 Pulse Rate [Left] 81 Respiratory Rate 19 Blood Pressure
--- NOTE | 2023-02-07 15:44 | ECG_ITS ---
APPROVED REPORT Exam: Resting ECG HR:85 bpm ECG Measurements Heart Rate 85 AXES AZ 169 P 64 QRSd 94 QRS 52 QT 330 T 45 QTc 372 Conclusion SINUS RHYTHM NORMAL ECG UNCONFIRMED REPORT Electronically signed by : Bernabe Call MD 02/08/2023 17:33:58
[2023-02-07 15:51] LABS: Basophils % 0.3 % (0.1-2.0); Eosinophils # 0.1 K/mm3 (0.0-0.4); Eosinophils % 0.6 % (0.1-12.0); Hematocrit 45.2 % (42.0-52.0); Hemoglobin 14.6 g/dL (14.1-18.0); Lymphocytes # 1.9 K/mm3 (0.7-4.5); Lymphocytes % 23.5 % (10-50); Mean Corpuscular HGB Conc 32.2 g/dL (31.8-35.4); Mean Corpuscular Hemoglobin 30.9 pg (27.0-31.2); Mean Corpuscular Volume 95.9 fl (80-94); Mean Platelet Volume 9.2 fl (7.4-10.4); Monocytes # 0.6 K/mm3 (0.1-1.0); Monocytes % 7.3 % (1.7-9.3); Neutrophils # 5.5 K/mm3 (1.8-7.8); Neutrophils % 68.4 % (37.0-80.0); Platelet Count 252 K/mm3 (142-424); Red Blood Count 4.71 M/mm3 (4.60-6.20); Red Cell Distribution Width 12.8 % (11.5-17.5); White Blood Count 8.1 K/mm3 (4.8-10.8)
[2023-02-07 15:59] LABS: Chloride 104 mmol/L (98-107); Potassium 3.8 mmoL/L (3.5-5.1); Sodium 141 mmol/L (136-145)
[2023-02-07 16:00] VITALS: BP 133/84; PULSE 83; O2SAT 97
[2023-02-07 16:02] LABS: Alanine Aminotransferase 27 U/L (12-78); Albumin Level 4.4 g/dl (3.5-5.0); Albumin/Globulin Ratio 1.6 (1.1-1.8); Alkaline Phosphatase 55 U/L (38-126); Anion Gap 14.8 mEq/L (5-15); Aspartate Amino Transferase 37 U/L (17-59); Bilirubin,Total 0.8 mg/dl (0.2-1.3); Blood Urea Nitrogen 12 mg/dl (9-20); Calcium 9.6 mg/dl (8.4-10.2); Carbon Dioxide 26 mmol/L (22.0-30.0); Creatinine Clearance Estimated 95 mL/min (50-200); Estimated Glomerular Filt Rate 87 ml/min (>60); GFR (African American) 105 ML/MIN (>60); Globulin 2.8 g/dL (1.3-3.2); Glucose 101 mg/dl (74-100); Total Protein,Serum 7.2 g/dl (6.3-8.2)
[2023-02-07 16:11] LABS: Lipase 600 U/L (23-300)
--- NOTE | 2023-02-07 16:12 | PC.NURSE ---
Critical lab reported to at this time. Lipase of 600. No new orders at this time.
--- NOTE | 2023-02-07 16:13 | PC.NURSE ---
rounded on patient; call pardo within reach.
--- NOTE | 2023-02-07 16:14 | PC.NURSE ---
Pt to CT
[2023-02-07 16:42] LABS: Microscopic, Urine URINE MICROSCOPIC (MICROSCOPIC)
[2023-02-07 16:45] VITALS: BP 123/81; PULSE 72; O2SAT 98
[2023-02-07 16:51] LABS: Appearance,Urine CLEAR (Clear); Bilirubin,Urine Negative (Negative); Blood, Urine Negative (Negative); Color,Urine STRAW (Yellow); Glucose,Urine (UA) Negative (Negative); Ketones,Urine Negative (Negative); Leukocyte Esterase,Urine Negative (Negative); Nitrate,Urine Negative (Negative); PH,Urine 6.5 (5.0-8.5); Protein,Urine Negative (Negative); Specific Gravity, Urine <= 1.005 (1.005-1.030); Urobilinogen,Urine 0.2 EU/dl (0.2)
[2023-02-07 17:00] VITALS: BP 123/82; PULSE 70; O2SAT 98
[2023-02-07 17:09] LABS: Squamous Epithelial Cell,Urine Occasional #/hpf (0-5)
--- NOTE | 2023-02-07 17:22 | PC.NURSE ---
pt resting in bed visitor at bs
[2023-02-07 17:30] VITALS: BP 116/75; PULSE 66; O2SAT 98
--- NOTE | 2023-02-07 18:01 | PC.NURSE ---
rounded on pt he received a small cup of water to take sips walked to restroom,call light at bs
[2023-02-07 18:06] LABS: Coronavirus 19, PCR Not Detected (NotDetected); Influenza A, PCR Not Detected (NotDetected); Influenza B, PCR Not Detected (NotDetected)
[2023-02-07 19:00] VITALS: BP 116/75; PULSE 66; RESP 16; TEMP 36.6
== END 2023-02-07 19:04 | disposition home or self-care (01) ==
PROVIDERS: Emergency Provider Emergency Medicine
DX: K85.80 Other acute pancreatitis without necrosis or infection (principal); R42 Dizziness and giddiness; M25.511 Pain in right shoulder; W19.XXXA Unspecified fall, initial encounter
CPT/HCPCS: 71045; 74177; 80053; 81001; 83690; 85025; 87636; 93005; 96361; 96374; 99285; J0131; Q9967

== ENCOUNTER 2023-02-11 20:03 | Emergency (ER) | payer MEDICAID, SELFPAY ==
[2023-02-11] VITALS (8 sets, daily range): BP systolic 106–138; BP diastolic 68–96; PULSE 74–104; RESP 16; TEMP 36.6–36.8; O2SAT 96–100; BMI 23.5
[2023-02-11 20:14] LABS: POC Glucose,Bedside 132 (70-110)
--- NOTE | 2023-02-11 20:17 | CT_ITS ---
PROCEDURE INFORMATION: Exam: CT Thoracic Spine Without Contrast Exam date and time: 02/11/2023 8:58 PM Age: 33 years old Clinical indication: Pain; Additional info: Trauma, critical injury suspected TECHNIQUE: Imaging protocol: Computed tomography of the thoracic spine without contrast. Radiation optimization: All CT scans at this facility use at least one of these dose optimization techniques: automated exposure control; mA and/or kV adjustment per patient size (includes targeted exams where dose is matched to clinical indication); or iterative reconstruction. REPORTING DATA: Count of CT and Cardiac NM exams in prior 12 months: This patient has received [address] and 0 known cardiac nuclear medicine studies in the 12 months prior to the current study. COMPARISON: CT CERVICAL SPINE WO CON 02/11/2023 8:56 PM FINDINGS: Bones/joints: No acute fracture. Normal alignment. No significant disc bulge or herniation. No severe spinal canal stenosis. No significant neural foraminal narrowing. Soft tissues: Unremarkable. Lungs: Granulomatous changes within the lungs and mediastinum. IMPRESSION: No acute osseous findings of the thoracic spine.
--- NOTE | 2023-02-11 20:17 | CT_ITS ---
PROCEDURE INFORMATION: Exam: CT Head Without Contrast Exam date and time: 02/11/2023 8:53 PM Age: 33 years old Clinical indication: Injury or trauma; Additional info: Trauma, critical injury suspected TECHNIQUE: Imaging protocol: Computed tomography of the head without contrast. Radiation optimization: All CT scans at this facility use at least one of these dose optimization techniques: automated exposure control; mA and/or kV adjustment per patient size (includes targeted exams where dose is matched to clinical indication); or iterative reconstruction. REPORTING DATA: Count of CT and Cardiac NM exams in prior 12 months: This patient has received [address] and 0 known cardiac nuclear medicine studies in the 12 months prior to the current study. COMPARISON: No relevant prior studies available. FINDINGS: Brain: Normal. No hemorrhage. Unremarkable white matter. No mass effect. Cerebral ventricles: No ventriculomegaly. Paranasal sinuses: Air-fluid level within the left maxillary sinus. Mastoid air cells: Visualized mastoid air cells are well aerated. Bones/joints: The calvarium is intact. Comminuted minimally displaced fractures of the anterior wall of the left maxillary sinus left nasal bone, inferior aspect of the left orbital rim, and mild cortical irregularity of the floor of the left orbit. Soft tissues: Soft tissue edema and hematoma about the left periorbital region and left maxilla. IMPRESSION: 1. No acute intracranial abnormality. 2. There is minimally displaced fractures of the left nasal bone, anterior wall the left maxillary sinus, left orbital rim, and irregularity of the left orbital floor. Recommend correlation with physical exam and consider further evaluation with dedicated CT face.
--- NOTE | 2023-02-11 20:17 | CT_ITS ---
PROCEDURE INFORMATION: Exam: CTA Chest With Contrast CTA Abdomen and Pelvis With Contrast Exam date and time: 02/11/2023 9:14 PM Age: 33 years old Clinical indication: Pain; Additional info: Trauma, critical injury suspected TECHNIQUE: Imaging protocol: Computed tomographic angiography of the chest with contrast. Exam focused on the arteries. Computed tomographic angiography of the abdomen and pelvis with contrast. Exam focused on the arteries. 3D rendering (Not supervised by radiologist): MIP and/or 3D reconstructed images were created by the technologist. Radiation optimization: All CT scans at this facility use at least one of these dose optimization techniques: automated exposure control; mA and/or kV adjustment per patient size (includes targeted exams where dose is matched to clinical indication); or iterative reconstruction. Contrast material: ISOVUE; Contrast volume: 75 ml; Contrast route: INTRAVENOUS (IV); REPORTING DATA: Count of CT and Cardiac NM exams in prior 12 months: This patient has received [address] and 0 known cardiac nuclear medicine studies in the 12 months prior to the current study. COMPARISON: CT CHEST W CON 04/10/2019 10:23 AM FINDINGS: VASCULATURE: Pulmonary arteries: Normal. No pulmonary emboli. Aorta: No aortic aneurysm. No aortic dissection. Celiac trunk and mesenteric arteries: No occlusion or significant stenosis. Renal arteries: No occlusion or significant stenosis. Right iliac arteries: No occlusion or significant stenosis. Left iliac arteries: No occlusion or significant stenosis. CHEST: Lungs: No focal airspace consolidation. Bilateral upper lobe calcified granulomas. Pleural spaces: Unremarkable. No pneumothorax. No pleural effusion. Heart: Unremarkable. No cardiomegaly. No pericardial effusion. ABDOMEN AND PELVIS: Liver: No mass. Gallbladder and bile ducts: Unremarkable. No calcified stones. No ductal dilation. Pancreas: Unremarkable. No mass. No ductal dilation. Spleen: Unremarkable. No splenomegaly. Adrenal glands: Unremarkable. No mass. Kidneys and ureters: Unremarkable. No solid mass. No hydronephrosis. Stomach and bowel: Mild colonic diverticulosis without evidence of acute diverticulitis. Appendix: No evidence of appendicitis. Intraperitoneal space: Unremarkable. No free air. No significant fluid collection. Urinary bladder: Unremarkable. No mass. Reproductive: Unremarkable as visualized. Lymph nodes: Small calcified mediastinal lymph nodes. Bones/joints: No acute osseous findings. Soft tissues: Unremarkable. IMPRESSION: No acute posttraumatic findings within the chest, abdomen or pelvis.
--- NOTE | 2023-02-11 20:17 | CT_ITS ---
PROCEDURE INFORMATION: Exam: CTA Neck With Contrast Exam date and time: 02/11/2023 9:10 PM Age: 33 years old Clinical indication: Pain; Additional info: Trauma, critical injury suspected TECHNIQUE: Imaging protocol: Computed tomographic angiography of the neck with contrast. 3D rendering (Not supervised by radiologist): MIP and/or 3D reconstructed images were created by the technologist. Radiation optimization: All CT scans at this facility use at least one of these dose optimization techniques: automated exposure control; mA and/or kV adjustment per patient size (includes targeted exams where dose is matched to clinical indication); or iterative reconstruction. Contrast material: ISOVUE; Contrast volume: 75 ml; Contrast route: INTRAVENOUS (IV); REPORTING DATA: Count of CT and Cardiac NM exams in prior 12 months: This patient has received [address] and 0 known cardiac nuclear medicine studies in the 12 months prior to the current study. COMPARISON: CT CERVICAL SPINE WO CON 02/11/2023 8:56 PM FINDINGS: Right common carotid artery: No stenosis. No dissection or occlusion. Right internal carotid artery: No stenosis of the extracranial segment. No dissection or occlusion. Right external carotid artery: No occlusion or stenosis of the origin. Left common carotid artery: No stenosis. No dissection or occlusion. Left internal carotid artery: No stenosis of the extracranial segment. No dissection or occlusion. Left external carotid artery: No occlusion or stenosis of the origin. Right vertebral artery: No stenosis. No dissection or occlusion. Left vertebral artery: No stenosis. No dissection or occlusion. Soft tissues: Soft tissue edema hematoma about the left maxillary sinus/periorbital region. Bones/joints: Fractures about the left maxillary sinus are again seen. Lungs: 8 mm partially calcified nodule within the left upper lobe. IMPRESSION: 1. No stenosis or occlusion. 2. 8 mm nodule left upper lobe consider follow-up CT chest 3-6 months per Fleischner guidelines. 3. Other findings as above. REFERENCES: NASCET CRITERIA. The degree of stenosis in the cervical segment of the internal carotid artery is based on NASCET criteria. Normal is no stenosis. Mild is less than 50% stenosis. Moderate is 50-69% stenosis. Severe is 70% to 99% stenosis. Total occlusion is no detectable patent lumen.
--- NOTE | 2023-02-11 20:17 | CT_ITS ---
PROCEDURE INFORMATION: Exam: CTA Head With Contrast, Arteriography Exam date and time: 02/11/2023 9:10 PM Age: 33 years old Clinical indication: Pain; Additional info: Trauma, critical injury suspected TECHNIQUE: Imaging protocol: Computed tomographic angiography of the head with contrast. Exam focused on the arteries. 3D rendering (Not supervised by radiologist): MIP and/or 3D reconstructed images were created by the technologist. Radiation optimization: All CT scans at this facility use at least one of these dose optimization techniques: automated exposure control; mA and/or kV adjustment per patient size (includes targeted exams where dose is matched to clinical indication); or iterative reconstruction. Contrast material: ISOVUE; Contrast volume: 75 ml; Contrast route: INTRAVENOUS (IV); REPORTING DATA: Count of CT and Cardiac NM exams in prior 12 months: This patient has received [address] and 0 known cardiac nuclear medicine studies in the 12 months prior to the current study. COMPARISON: CT HEAD/BRAIN WO CON 02/11/2023 8:53 PM FINDINGS: ANTERIOR CIRCULATION: Right internal carotid artery: Intracranial segment is patent with no significant stenosis. No aneurysm. Right middle cerebral artery: No occlusion or significant stenosis. No aneurysm. Right anterior cerebral artery: No occlusion or significant stenosis. No aneurysm. Left internal carotid artery: Intracranial segment is patent with no significant stenosis. No aneurysm. Left middle cerebral artery: No occlusion or significant stenosis. No aneurysm. Left anterior cerebral artery: No occlusion or significant stenosis. No aneurysm. POSTERIOR CIRCULATION: Right vertebral artery: No occlusion or significant stenosis. No aneurysm. Left vertebral artery: No occlusion or significant stenosis. No aneurysm. Basilar artery: No occlusion or significant stenosis. No aneurysm. Right posterior cerebral artery: No occlusion or significant stenosis. No aneurysm. Left posterior cerebral artery: No occlusion or significant stenosis. No aneurysm. Brain: No definite mass, mass effect, or midline shift. Cerebral ventricles: No ventriculomegaly. Bones/joints: Unchanged. Soft tissues: Unchanged. IMPRESSION: 1. No large vessel stenosis or occlusion. 2. Other findings as above.
--- NOTE | 2023-02-11 20:17 | CT_ITS ---
PROCEDURE INFORMATION: Exam: CT Maxillofacial Without Contrast Exam date and time: 02/11/2023 9:07 PM Age: 33 years old Clinical indication: Pain; Additional info: Trauma, critical injury suspected TECHNIQUE: Imaging protocol: Computed tomography of the face without contrast. Radiation optimization: All CT scans at this facility use at least one of these dose optimization techniques: automated exposure control; mA and/or kV adjustment per patient size (includes targeted exams where dose is matched to clinical indication); or iterative reconstruction. REPORTING DATA: Count of CT and Cardiac NM exams in prior 12 months: This patient has received [address] and 0 known cardiac nuclear medicine studies in the 12 months prior to the current study. COMPARISON: CT HEAD/BRAIN WO CON 02/11/2023 8:53 PM FINDINGS: Orbital cavities: Globes are intact. No retrobulbar hematoma. Bones/joints: Fracture of the floor of the left orbit and involvement of the anterior inferior left orbital rim. Comminuted minimally displaced fractures of the anterior wall of the left maxillary sinus with involvement of the frontal process. Fracture of the left nasal bone. Paranasal sinuses: Air-fluid level left maxillary sinus Soft tissues: Soft tissue edema and hematoma about the nose and left periorbital region. IMPRESSION: 1. Fractures of the anterior inferior left orbital rim, left orbital floor, anterior wall left maxillary sinus, and the left nasal bone. No retrobulbar hematoma. 2. Air-fluid level left maxillary sinus. 3. Soft tissue edema and hematoma about the nose and left periorbital region.
--- NOTE | 2023-02-11 20:17 | CT_ITS ---
PROCEDURE INFORMATION: Exam: CT Cervical Spine Without Contrast Exam date and time: 02/11/2023 8:56 PM Age: 33 years old Clinical indication: Pain; Additional info: Trauma, critical injury suspected TECHNIQUE: Imaging protocol: Computed tomography of the cervical spine without contrast. Radiation optimization: All CT scans at this facility use at least one of these dose optimization techniques: automated exposure control; mA and/or kV adjustment per patient size (includes targeted exams where dose is matched to clinical indication); or iterative reconstruction. REPORTING DATA: Count of CT and Cardiac NM exams in prior 12 months: This patient has received [address] and 0 known cardiac nuclear medicine studies in the 12 months prior to the current study. COMPARISON: CT HEAD/BRAIN WO CON 02/11/2023 8:53 PM FINDINGS: Bones/joints: No acute fracture of the cervical spine. Normal alignment. No significant disc bulge or herniation. No severe spinal canal stenosis. No significant neural foraminal narrowing. Known fractures about the left maxillary sinus and orbit are again seen. Lungs: 8 mm nodule within the left upper lobe. Soft tissues: Unremarkable. IMPRESSION: 1. No acute osseous abnormality of the cervical spine. 2. 8 mm partially calcified nodule within the left upper lobe as per Fleischner Society guidelines consider follow-up in 3-6 months. 3. Other findings as above.
--- NOTE | 2023-02-11 20:17 | CT_ITS ---
PROCEDURE INFORMATION: Exam: CT Pelvis Without Contrast; Skeletal Exam date and time: 02/11/2023 9:04 PM Age: 33 years old Clinical indication: Pain; Additional info: Trauma, critical injury suspected TECHNIQUE: Imaging protocol: Computed tomography of the pelvis without contrast. Exam focused on the skeleton. Radiation optimization: All CT scans at this facility use at least one of these dose optimization techniques: automated exposure control; mA and/or kV adjustment per patient size (includes targeted exams where dose is matched to clinical indication); or iterative reconstruction. REPORTING DATA: Count of CT and Cardiac NM exams in prior 12 months: This patient has received [address] and 0 known cardiac nuclear medicine studies in the 12 months prior to the current study. COMPARISON: CT ABDOMEN PELVIS W CON 02/07/2023 4:25 PM FINDINGS: Bones/joints: Unremarkable. No acute fracture. No dislocation. Soft tissues: Unremarkable. IMPRESSION: No acute osseous findings.
--- NOTE | 2023-02-11 20:17 | CT_ITS ---
PROCEDURE INFORMATION: Exam: CT Lumbar Spine Without Contrast Exam date and time: 02/11/2023 9:01 PM Age: 33 years old Clinical indication: Pain; Additional info: Trauma, critical injury suspected TECHNIQUE: Imaging protocol: Computed tomography of the lumbar spine without contrast. Radiation optimization: All CT scans at this facility use at least one of these dose optimization techniques: automated exposure control; mA and/or kV adjustment per patient size (includes targeted exams where dose is matched to clinical indication); or iterative reconstruction. REPORTING DATA: Count of CT and Cardiac NM exams in prior 12 months: This patient has received [address] and 0 known cardiac nuclear medicine studies in the 12 months prior to the current study. COMPARISON: CT THORACIC SPINE WO CON 02/11/2023 8:58 PM FINDINGS: Bones/joints: No acute fracture. Normal alignment. No significant disc bulge or herniation. No severe spinal canal stenosis. No significant neural foraminal narrowing. Soft tissues: Unremarkable. IMPRESSION: No acute osseous findings of the lumbar spine.
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
[2023-02-11 20:25] LABS: Basophils # 0.1 K/mm3 (0-0.2); Basophils % 0.6 % (0.1-2.0); Eosinophils # 0.1 K/mm3 (0.0-0.4); Hemoglobin 15.8 g/dL (14.1-18.0); Lymphocytes # 2.2 K/mm3 (0.7-4.5); Lymphocytes % 23.7 % (10-50); Mean Corpuscular Hemoglobin 31.2 pg (27.0-31.2); Mean Corpuscular Volume 94.7 fl (80-94); Mean Platelet Volume 9.4 fl (7.4-10.4); Monocytes # 0.5 K/mm3 (0.1-1.0); Monocytes % 5.8 % (1.7-9.3); Neutrophils # 6.5 K/mm3 (1.8-7.8); Neutrophils % 68.9 % (37.0-80.0); Platelet Count 283 K/mm3 (142-424); Red Blood Count 5.07 M/mm3 (4.60-6.20); Red Cell Distribution Width 12.7 % (11.5-17.5); White Blood Count 9.4 K/mm3 (4.8-10.8)
[2023-02-11 20:26] LABS: Chloride 102 mmol/L (98-107); Sodium 140 mmol/L (136-145)
[2023-02-11 20:27] LABS: Potassium 3.8 mmoL/L (3.5-5.1)
[2023-02-11 20:29] LABS: Alanine Aminotransferase 27 U/L (12-78); Albumin Level 4.4 g/dl (3.5-5.0); Albumin/Globulin Ratio 1.6 (1.1-1.8); Alkaline Phosphatase 54 U/L (38-126); Anion Gap 14.8 mEq/L (5-15); Aspartate Amino Transferase 32 U/L (17-59); Bilirubin,Total 0.7 mg/dl (0.2-1.3); Blood Urea Nitrogen 24 mg/dl (9-20); Carbon Dioxide 27 mmol/L (22.0-30.0); Creatinine Clearance Estimated 93 mL/min (50-200); Estimated Glomerular Filt Rate 78 ml/min (>60); GFR (African American) 94 ML/MIN (>60); Globulin 2.7 g/dL (1.3-3.2); Total Protein,Serum 7.1 g/dl (6.3-8.2)
[2023-02-11 20:30] LABS: Calcium 9.9 mg/dl (8.4-10.2); Glucose 137 mg/dl (74-100)
--- NOTE | 2023-02-11 21:00 | PC.NURSE ---
pt is at ct
[2023-02-11 21:02] LABS: VBG Base Excess -1.4 mmol/L (-2.4-2.3); VBG HCO3 24.4 mmol/L (23-30); VBG Oxygen Saturation 91.7 % (50-70); VBG PCO2 47.1 mmol/L (35-51); VBG PH 7.33 mmol/L (7.31-7.41); VBG PO2 66.1 mmol/L (28-40); VBG Total CO2 25.9 mmol/L (23-27)
--- NOTE | 2023-02-11 21:24 | PC.NURSE ---
Nurse Barbara at speaking with pt significant other
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
--- NOTE | 2023-02-11 22:25 | PC.NURSE ---
Vanesa o/p with transfer center at this time.
--- NOTE | 2023-02-11 22:38 | PC.NURSE ---
Transfer center advised Dr. Fowler was busy at this time and would call back when available.
--- NOTE | 2023-02-11 22:41 | ECG_ITS ---
APPROVED REPORT Exam: Resting ECG HR:88 bpm ECG Measurements Heart Rate 88 AXES NJ 153 P 74 QRSd 87 QRS 94 QT 329 T 66 QTc 375 Conclusion SINUS RHYTHM WITH SINUS ARRHYTHMIA BORDERLINE RIGHT AXIS DEVIATION [QRS AXIS > 90] BORDERLINE ECG UNCONFIRMED REPORT Electronically signed by : Bernabe Call MD 02/12/2023 08:37:21
--- NOTE | 2023-02-11 22:55 | PC.NURSE ---
dr madrid from return call at this time
[2023-02-11 23:06] LABS: Troponin I < 0.01 ng/ml (0.00-0.034)
--- NOTE | 2023-02-11 23:48 | PC.NURSE ---
pt alert and orientedx4, pupils LYNSEYRJOAQUINA BEYERN, amb with steady gait out of ER with family
--- NOTE | 2023-02-12 02:12 | PC.NURSE ---
attempted to contact patient via contact number in chart per dr panchal's request. voicemail is not set up and patient didn't answer. will advised day charge to continue to attempt.
--- NOTE | 2023-02-12 08:55 | PC.NURSE ---
attempted to call pt for follow up on out pt care per report handoff from night charge. No answer at this time, no voicemail set up. Will continue to make contact with pt t/o shift
== END 2023-02-11 23:52 | disposition home or self-care (01) ==
PROVIDERS: Emergency Provider Emergency Medicine
DX: S02.32XA Fracture of orbital floor, left side, initial encounter for closed fracture (principal); S02.2XXA Fracture of nasal bones, initial encounter for closed fracture; S02.40DA Maxillary fracture, left side, initial encounter for closed fracture; Y09 Assault by unspecified means; M54.2 Cervicalgia
CPT/HCPCS: 70450; 70486; 70496; 70498; 71275; 72125; 72128; 72131; 72192; 74174; 80053; 82803; 82962; 84484; 85025; 86850; 93005; 99285; Q9967

== ENCOUNTER 2023-09-07 10:31 | Emergency (ER) | payer MEDICAID, SELFPAY ==
[2023-09-07 10:34] VITALS: BP 103/57; PULSE 98; RESP 20; TEMP 36.6; O2SAT 96; BMI 22.3
--- NOTE | 2023-09-07 10:41 | XR_ITS ---
FINAL REPORT CLINICAL HISTORY: anteromedial laceration to muscle, r/o FB best films possible, pt would not cooperate FINDINGS: Left femur Two views were obtained. There is no acute fracture or dislocation. The joint spaces appear normal. Presumed bandage is identified. There is presumed soft tissue air. No foreign body is identified. IMPRESSION: No foreign body identified. Reviewed, Interpreted and Dictated by Ganesh Asif III, MD Transcribed by Alejandra Leos Authenticated and [facility]
--- NOTE | 2023-09-07 10:48 | HMH.EDGENADL ---
Discharge Plan Disposition Patient Disposition: Home, Self-Care Prescriptions Prescriptions: New cephalexin 500 mg capsule 1,000 mg PO BID 7 Days Qty: 28 0RF Referrals Follow up/Referrals: Joe Pate DO [Primary Care Provider] - See instructions Activity Restrictions/Add. Instructions Additional Instructions/Restrictions: Call your family doctor to establish care for this visit to the emergency department and schedule follow-up within 48 hours to ensure improvement. If you have any worsening of your condition or any other concerning signs or symptoms, return to the emergency department or your primary care doctor for further evaluation. Take antibiotic twice daily for full 7-day course to prevent infection. Clinical Impressions Clinical Impression: Laceration of left leg Discharge ED Provider: Noah Hyde General Adult HPI General Chief complaint: Extremity Injury, Lower Stated complaint: cut on left side Time Seen by Provider: 09/07/23 10:33 History of Present Illness HPI narrative: 33-year-old male no relevant history presenting with laceration to the medial thigh. Patient states that he was at work working with [employer] when a piece fell and cut him in the medial aspect of his left thigh. Minimal blood on scene. Patient having significant pain. Able to ambulate after the event. States that last tetanus vaccination is in the system, unable to find it. Patient having moderate to severe pain in his medial thigh. Able to bend and extend the knee. Related Data Previous Rx's Medication Instructions Recorded cephalexin 500 mg capsule 1,000 mg (2 x 500 mg) PO BID 7 09/07/23 days #28 caps Allergies Allergy/AdvReac Type Severity Reaction Status Date / Time No Known Allergies Allergy Verified 09/16/22 10:24 [facility] Disclaimer: The information contained in this section may have been updated after the patient was seen, as this information can be updated by other users. Social History Smoking Status: Current every day smoker alcohol intake: never substance use type: denies use current occupational status: employed and disabled Travel in the last 8 weeks: [place] the [place] household members: family housing: house number of children: 0 ROS Obtained: Yes All systems reviewed & no additional complaints except as documented Physical Exam General General appearance: alert and other (Tired appearing) Head Head exam: atraumatic and normocephalic Eye Eye exam: Present normal appearance, PERRL and EOMI ENT ENT exam: Present mucous membranes moist Neck Neck exam: Present normal inspection, full ROM and trachea midline Respiratory Respiratory exam: Absent respiratory distress, wheezes, stridor, accessory muscle use or prolonged expiratory phase Cardiovascular Cardiovascular exam: Present normal rhythm Abdominal Exam Abdominal exam: Present soft; Absent distention, tenderness, guarding, rebound or rigidity Extremities Exam Extremities exam: Present edema and other (4 cm laceration anterior medial thigh which is hemostatic. Muscle body involved. Neurovascularly intact distally. Range of motion intact, but limited secondary to pain) Neurological Exam Neurological exam: Present alert, oriented X3, CN II-XII intact and normal gait; Absent motor sensory deficit Skin Skin exam: Present warm and dry; Absent diaphoresis or erythema Medical Decision Making Medical Records Medical records reviewed: Yes I reviewed the patient's medical records. Uriel Inquiry Pt receiving controlled substance: No Uriel was queried for this patient: No Vital Signs: 09/07/23 10:34 09/07/23 11:00 09/07/23 12:00 Temperature 97.8 F Temperature Source Oral Pulse Rate 77 76 Pulse Rate [Right Radial] 98 H Respiratory Rate 20 20 18 Blood Pressure 82/61 L 65/36 L Blood Pressure [Right Arm] 103/57 L Blood Pressure Mean 68 45 Blood Pressure Mean [Right Arm] 72 02 Sat by Pulse Oximetry 96 99 99 Oxygen Delivery Method Room Air Orders (Tests/Meds): ED MEDICATIONS Discontinued Medications Generic Name Dose Route Start Last Admin Trade Name Yoniq PRN Reason Stop Dose Admin Acetaminophen 1,000 mg 09/07/23 10:41 09/07/23 11:38 Acetaminophen 500mg Tab PO 09/07/23 10:42 1,000 mg ONCE ONE Administration Cocaine HCl 1 ml 09/07/23 10:41 09/07/23 11:02 Cocaine 4% Topical Soln 4ml Bottle TP 09/07/23 10:42 1 ml ONCE ONE Administration Epinephrine HCl 1 mg 09/07/23 10:41 09/07/23 11:01 Epinephrine 1 Mg/Ml Ampul TP 09/07/23 10:42 1 mg ONCE ONE Administration Ibuprofen 600 mg 09/07/23 10:41 09/07/23 11:38 Ibuprofen 600 Mg Tablet PO 09/07/23 10:42 600 mg ONCE ONE Administration Lidocaine HCl 20 ml 09/07/23 10:41 09/07/23 11:51 Lidocaine 1% 20ml Mdv SQ 09/07/23 10:42 20 ml ONCE ONE Administration Lidocaine HCl 1 ml 09/07/23 10:41 09/07/23 11:01 Lidocaine 2% Urojet 10ml TP 09/07/23 10:42 1 ml ONCE ONE Administration Tetanus/Reduced Diphtheria/Acell Pertussis 0.5 ml 09/07/23 10:53 09/07/23 11:40 Tet/Diphth/Pert-Adult 0.5ml Syringe IM 09/07/23 10:54 0.5 ml .ONCE ONE Administration ORDERS Category Date Time Status Femur XR left 2 views [XR femur LT 2V] Stat Exams 09/07/23 10:41 Taken Medical Decision Narrative: 33-year-old male no relevant history presenting with laceration to the medial thigh. Patient states that he was at work working with [employer] when a piece fell and cut him in the medial aspect of his left thigh. Minimal blood on scene. Patient having significant pain. Able to ambulate after the event. States that last tetanus vaccination is in the system, unable to find it. Patient having moderate to severe pain in his medial thigh. Able to bend and extend the knee. History was obtained via conversation with patient. On arrival, patient hemodynamically stable, alert, oriented x4, appropriate, GCS 15, moving all extremities spontaneously, pupils equal and reactive to light. Full physical exam performed and significant for tired appearing male in no acute distress until actively trying to range lower extremity. He has a 4 cm laceration on the anterior medial aspect of his proximal left thigh. Hemostatic, neurovascularly intact distally with palpable pulses. Muscle body appears to be evaluated, but not transected. Not grossly contaminated. Differential includes laceration, foreign body, neurovascular injury, among others. Patient was given Tdap, lidocaine/epinephrine/cocaine for symptomatic management and correction of underlying abnormalities. Workup independently interpreted and significant for no acute foreign body or abnormality of the left femur. See radiology read for full review of final results. Laceration was closed with subcutaneous lidocaine 1% and 4-0 nylon sutures after being washed out thoroughly. Given patient presentation, workup, history, this most likely represents laceration medial thigh without neurovascular compromise. Because patient at baseline without signs or symptoms of clinical decompensation, deemed appropriate for discharge. Results were relayed to patient who voiced understanding and were agreeable to outpatient management and follow up. At the time of discharge the patient was hemodynamically stable, tolerating PO, and mobilizing appropriately. Procedures Laceration Laceration 1: Site: lower extremity Side (If applicable): left Size (cm): 5 Description: linear Depth: simple, single layer Local Anesthetic: lidocaine 1% Amount of anesthesia used (mL): 10 Pre-repair: wound explored and irrigated extensively Skin layer closed with: nylon Size (cm): 3-0 Number of sutures: 11 Technique: simple, interrupted Critical Care Critical Care Time Critical Care Time: No
[2023-09-07 11:00] VITALS: BP 82/61; PULSE 77; RESP 20; O2SAT 99
[2023-09-07] MEDS: LIDOCAINE 2% UROJET 10ML TP (11:01)
[2023-09-07] MEDS: EPINEPHrine 1 MG/ML AMPUL TP (11:01)
[2023-09-07] MEDS: COCAINE 4% TOPICAL SOLN 4ML BOTTLE 1 ML TP (11:02)
[2023-09-07] MEDS: IBUPROFEN 600 MG TABLET PO (11:38)
[2023-09-07] MEDS: ACETAMINOPHEN 500MG TAB 1000 MG PO (11:38)
[2023-09-07] MEDS: TET/DIPHTH/PERT-ADULT 0.5ML SYRINGE 0.5 ML IM (11:40)
[2023-09-07] MEDS: LIDOCAINE 1% 20ML MDV 20 ML SQ (11:51)
--- NOTE | 2023-09-07 11:52 | PC.NURSE ---
lidocaine given to MD for procedure
[2023-09-07 12:00] VITALS: BP 65/36; PULSE 76; RESP 18; O2SAT 99
[2023-09-07 12:19] VITALS: BP 111/59; PULSE 87; RESP 18; TEMP 36.6; O2SAT 96
== END 2023-09-07 12:30 | disposition home or self-care (01) ==
PROVIDERS: Emergency Provider Emergency Medicine; PCP Internal Medicine
DX: S71.112A Laceration without foreign body, left thigh, initial encounter (principal); W26.8XXA Contact with other sharp object(s), not elsewhere classified, initial encounter; Y99.0 Civilian activity done for income or pay; F17.200 Nicotine dependence, unspecified, uncomplicated
CPT/HCPCS: 12002; 73552; 90471; 90715; 99283

== ENCOUNTER 2023-09-09 19:20 | Emergency (ER) | payer MEDICAID, SELFPAY ==
[2023-09-09 19:34] VITALS: BP 104/65; PULSE 88; RESP 16; TEMP 36.9; O2SAT 98; BMI 22.7
--- NOTE | 2023-09-09 20:06 | HMH.EDGENADL ---
Discharge Plan Disposition Patient Disposition: Home, Self-Care Condition: Good Prescriptions Prescriptions: New acetaminophen 500 mg tablet 500 mg PO Q4H PRN (Reason: fever) Qty: 90 0RF ibuprofen 200 mg tablet 600 mg PO Q6H PRN (Reason: fever or pain) Qty: 90 0RF No Action cephalexin 500 mg capsule 1,000 mg PO BID 7 Days Qty: 28 0RF Referrals Follow up/Referrals: Joe Pate DO [Primary Care Provider] - See instructions Activity Restrictions/Add. Instructions Additional Instructions/Restrictions: Continue keeping the wound clean and dry. Take Tylenol ibuprofen as needed for pain. Continue taking the antibiotics as directed. Follow-up with your primary care physician in 2 to 3 days for reevaluation. Start walking on the leg as you are able but use crutches until that time. Return to the ER with new, worsening, or otherwise concerning symptoms. Clinical Impressions Clinical Impression: Laceration of left leg Instructions Patient Instructions: DI for Laceration Repair Discharge ED Provider: Octavia Madrid General Adult HPI General Chief complaint: Wound/Laceration Stated complaint: Painful left leg difficulty walking Time Seen by Provider: 09/09/23 19:32 Mode of Arrival: Family Vehicle Source of Information: Patient Limitations: No Limitations Description of Symptoms (Recalled from ER Triage Doc. by RN): left lower extremity wound recheck; patient is alert, responsive and able to describe needs. was seen 09/07/23 following a forklift accident. Ended up with sutures. Comes back today for pain in his leg. Unable to distinguish between new and old pain. History of Present Illness HPI narrative: 33-year-old male presents to the ER with concerns of left lower extremity pain. He was seen 2 days ago after a forklift accident having repair of his left thigh wound. States he is still having significant pain and is still having difficulty walking. He states this is similar to when he left the ER. He is not having any new numbness, tingling, or weakness. He is requesting crutches. I reviewed x-ray and radiology read from the prior visit which demonstrates no findings of foreign body or fracture. Patient has sutures in place. He states he has not tried Tylenol or ibuprofen or any other pain medications. Related Data Previous Rx's Medication Instructions Recorded cephalexin 500 mg capsule 1,000 mg (2 x 500 mg) PO BID 7 09/07/23 days #28 caps acetaminophen 500 mg tablet 500 mg PO Q4H PRN fever #90 tabs 09/09/23 ibuprofen 200 mg tablet 600 mg (3 x 200 mg) PO Q6H PRN 09/09/23 fever or pain #90 tabs Allergies Allergy/AdvReac Type Severity Reaction Status Date / Time No Known Allergies Allergy Verified 09/16/22 10:24 [facility] Disclaimer: The information contained in this section may have been updated after the patient was seen, as this information can be updated by other users. Social History Smoking Status: Unknown if ever smoked alcohol intake: never substance use type: denies use current occupational status: employed and disabled Travel in the last 8 weeks: [place] the [place] household members: family housing: house number of children: 0 ROS Obtained: Yes All systems reviewed & no additional complaints except as documented Constitutional Constitutional: Denies chills, Denies fever(s), Denies headache(s) and Denies weakness Eyes Eyes: Denies change in vision ENT Ears, Nose, Mouth, and Throat: Denies dizziness, Denies headache(s), Denies nasal congestion and Denies sore throat Cardiovascular Cardiovascular: Denies chest pain, Denies dyspnea and Denies leg edema Respiratory Respiratory: Denies cough and Denies dyspnea Gastrointestinal Gastrointestingal: Denies constipation, diarrhea, nausea or vomiting Genitourinary Male Genitourinary: Denies difficulty urinating Musculoskeletal Musculoskeletal: Denies arthralgias, Reports limited range of motion, Reports myalgias, Denies numbness and Denies tingling Integumentary/Breasts Skin/Breast: Denies change in pigmentation Comments: wound Neurologic Neurologic: Denies dizziness, Denies headache(s), Denies numbness, Denies tingling and Denies weakness Physical Exam General General appearance: alert and in no apparent distress Head Head exam: atraumatic and normocephalic Eye Eye exam: Present PERRL and EOMI ENT ENT exam: Present mucous membranes moist Neck Neck exam: Present normal inspection and full ROM Chest Chest inspection: Present symmetric chest wall rise Respiratory Respiratory exam: Absent respiratory distress or stridor Cardiovascular Cardiovascular exam: Present regular rate and normal rhythm Abdominal Exam Abdominal exam: Present soft; Absent distention or tenderness Extremities Exam Extremities exam: Present full ROM (Painful, but full) and tenderness Neurological Exam Neurological exam: Present alert and oriented X3; Absent motor sensory deficit Psychiatric Psychiatric exam: Present normal affect and normal mood Skin Skin exam: Present warm, dry and other (Large linear laceration on the proximal left lower extremity that is well-approximated with sutures, well-healing, there is significant surrounding bruising but no induration, fluctuance, or findings of infection, no abnormal discharge or heat) Medical Decision Making Uriel Inquiry Pt receiving controlled substance: No Vital Signs: 09/09/23 19:34 09/09/23 20:41 Temperature 98.5 F 98.8 F Temperature Source Oral Oral Pulse Rate 76 Pulse Rate [Right Brachial] 88 Respiratory Rate 16 18 Blood Pressure 117/83 Blood Pressure [Right Arm] 104/65 L Blood Pressure Mean [Right Arm] 78 Blood Pressure Source Automatic Cuff Blood Pressure Source [Right Arm] Automatic Cuff Blood Pressure Position Supine Blood Pressure Position [Right Arm] Sitting 02 Sat by Pulse Oximetry 98 Oxygen Delivery Method Room Air Room Air Medical Decision Narrative: In summary, this 33year old male presents to the emergency department today with left leg pain after recent forklift accident and laceration repair. On initial evaluation patient is hemodynamically stable, afebrile, laceration of left leg is well-healing and well-appearing without findings of infection, range of motion of the leg is only limited by pain, but is able to be full patient persists through the pain. Differential diagnosis includes but is not limited to fracture, bone bruise, infection, normal post injury inflammatory changes. I reviewed recent radiology reads from patient's most recent ED visit which do not demonstrate any findings of foreign body or osseous injury. I do not believe additional radiology studies are necessary at this time. Based off history and exam I do not believe patient requires any further workup at this time. I provided crutches as he is having difficulty with ambulation. I encouraged him to take Tylenol and ibuprofen. He is appropriate for discharge. Patient was given instructions on symptomatic management, follow up instructions, and return precautions for the emergency department. Patient indicated understanding and was discharged in stable condition. Critical Care Critical Care Time Critical Care Time: No
[2023-09-09 20:41] VITALS: BP 117/83; PULSE 76; RESP 18; TEMP 37.1; O2SAT 97
== END 2023-09-09 20:49 | disposition home or self-care (01) ==
PROVIDERS: Emergency Provider Emergency Medicine; PCP Internal Medicine
DX: M79.604 Pain in right leg (principal); S71.112A Laceration without foreign body, left thigh, initial encounter; R26.2 Difficulty in walking, not elsewhere classified; V83.4XXA Person injured while boarding or alighting from special industrial vehicle, initial encounter
CPT/HCPCS: 99283

== ENCOUNTER 2023-10-25 16:42 | Outpatient (CLI) | payer MEDICAID, SELFPAY ==
--- NOTE | 2023-10-25 16:46 | XR_ITS ---
PROCEDURE INFORMATION: Exam: XR Chest Exam date and time: 10/25/2023 4:47 PM Age: 33 years old Clinical indication: Cough and shortness of breath and other: Gagging with eating, chest pain; Patient HX: SOA, cough, cp, gags with eating TECHNIQUE: Imaging protocol: Radiologic exam of the chest. Views: 2 views. COMPARISON: CT ANGIO CHEST 02/11/2023 9:14 PM FINDINGS: Lungs: Unremarkable. No consolidation. Pleural spaces: Unremarkable. No pleural effusion. No pneumothorax. Heart/Mediastinum: Unremarkable. No cardiomegaly. Bones/joints: Unremarkable. IMPRESSION: No acute findings.
== END 2023-10-25 23:59 | disposition home or self-care (01) ==
LOC: RAD 16:43
PROVIDERS: PCP Nurse Practitioner Family; Visit Provider Nurse Practitioner Family
DX: R06.02 Shortness of breath (principal)
CPT/HCPCS: 71046

== ENCOUNTER 2023-12-19 12:56 | Outpatient (CLI) | payer MEDICAID, SELFPAY ==
--- NOTE | 2023-12-19 13:11 | XR_ITS ---
FINAL REPORT CLINICAL HISTORY: lt femur pain COMPARISON: None FINDINGS: LEFT FEMUR: 4 views show no evidence of an acute, displaced fracture or dislocation of the visualized bony architecture. The joint spaces appear normal. IMPRESSION: Unremarkable exam. Reviewed, Interpreted and Dictated by Yuan Orozco MD Transcribed by Rosa Cm Authenticated and [facility]
== END 2023-12-19 23:59 | disposition home or self-care (01) ==
LOC: RAD 12:57
PROVIDERS: PCP Nurse Practitioner Family; Visit Provider Nurse Practitioner Family
DX: M79.605 Pain in left leg (principal)
CPT/HCPCS: 73552

== ENCOUNTER 2023-12-22 13:20 | Outpatient (CLI) | payer MEDICAID, SELFPAY ==
--- NOTE | 2023-12-22 13:21 | US_ITS ---
FINAL REPORT CLINICAL HISTORY: L Upper thigh pain COMPARISON: None FINDINGS: Limited ultrasound of the soft tissues of the left upper thigh were obtained of the area of interest. There is borderline adenopathy in the upper left thigh considered to be reactive. Curvilinear foci of abnormal echogenicity are noted within the left thigh musculature. These pass through the muscle fibers and may represent posttraumatic change with localized areas of muscle transsection. No fluid collection is seen to indicate abscess or hematoma. IMPRESSION: No evidence of abscess or hematoma. Muscle fiber posttraumatic change. Reviewed, Interpreted and Dictated by Yuan Orozco MD Transcribed by Caitlin Gonzalez Authenticated and [facility]
== END 2023-12-22 23:59 | disposition home or self-care (01) ==
LOC: RAD 13:21
PROVIDERS: PCP Nurse Practitioner Family; Visit Provider Nurse Practitioner Family
DX: M79.605 Pain in left leg (principal)
CPT/HCPCS: 76882

== ENCOUNTER 2023-12-26 10:00 | Outpatient (RCR) | payer MEDICAID, SELFPAY ==
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
--- NOTE | 2023-11-29 09:57 | HMH.RHREAS ---
Rehab Reassessment Rehab OP Re-assessment Start: 11/01/23 09:52 Freq: Status: Active Protocol: Document 11/29/23 09:33 ROSLYN (Rec: 11/29/23 09:57 MACEYCRISTEL [id number]) E-signed By Ramandeep Conley PT Rehab Re-assessment Subjective Subjective Pt reports he feels 60% improved since starting PT. Pt reports he continues to have pain rated 7/10 on VAS at worst with squatting, kneeling and bending forward. Pt reports he has not attempted running yet but would like to return to this, states he used to run 5ks. Pt reports no difficulty with walking or stair climbing and feels that he is able to move his left leg better. Pt reports compliance with HEP. Objective Objective Notes Palpation: 2/4 TTP of L adductor and hip flexor mm L hip AROM: hip flexion 105, hip abd 25, hip add 45 L knee AROM: 0-130 LLE MMT: hip flex 4+/5, hip abd/add 4/5, knee ext 4/5 (p!) , knee flex 4+/5, ankle DF 5/5 Assessment Assessment Notes Pt has attended only 4 PT visits since his initial evaluation on 11/01/23. Pt demonstrated improved L hip TTP, L hip/knee AROM, and strength this date compared to his initial evaluation. Pt continues to report moderate- severe pain with squatting, kneeling and bending forward. Pt educated on importance of compliance with PT POC to assist with progress. Overall, the pt would continue to benefit from skilled PT to further improve subjective report of pain, tissue extensibility, LE mobility/ strength and functional activity tolerance to assist with return to PLOF. Patient goals met ST/4 Goals Not Met p! at worst, hip abduction AROM, LTG Revised Goals n/a Plan Plan Continue initial POC Frequency of Therapy 1-2x/week Duration of therapy 4 more weeks Time and Billing Re-Eval Time 12 Re-Eval Billing Units 1 PHYSICIAN CERTIFICATION: I certify the specified therapy services for Noel Lara are required, authorized, and reviewed every 30 days.
== END 2023-12-26 11:15 | disposition home or self-care (01) ==
LOC: PT 10:00
PROVIDERS: Visit Provider Nurse Practitioner Family
DX: M79.605 Pain in left leg (principal)
CPT/HCPCS: 97035; 97110; 97163; 97164; 97530

== ENCOUNTER 2024-01-04 12:39 | Outpatient (CLI) | payer MEDICAID, SELFPAY ==
--- NOTE | 2024-01-04 12:45 | MR_ITS ---
FINAL REPORT CLINICAL HISTORY: LT Thigh Pain FINDINGS: Multiplanar MR imaging of the left thigh was performed without contrast. There is no evidence of fracture or bone marrow edema. No bony mass is identified. Musculature is intact. No soft tissue mass or cyst is identified. No soft tissue inflammation is seen. IMPRESSION: No acute abnormality identified. Authenticated and [facility]
--- NOTE | 2024-01-04 13:05 | XR_ITS ---
FINAL REPORT CLINICAL HISTORY: RULE OUT METALLIC FOREIGN BODY FOR MRI. prior hx metal in left eye COMPARISON: CT head dated 02/11/2023 FINDINGS: ORBITS Look up and look down views were obtained. No foreign body is identified. IMPRESSION: No foreign body is identified. Reviewed, Interpreted and Dictated by Ganesh Asif III, MD Transcribed by Rosa Cm Authenticated and . [facility]
== END 2024-01-04 23:59 | disposition home or self-care (01) ==
LOC: RAD 12:45
PROVIDERS: PCP Internal Medicine; Visit Provider Orthopaedic Surgery
DX: M79.652 Pain in left thigh (principal); S81.812A Laceration without foreign body, left lower leg, initial encounter
CPT/HCPCS: 70200; 73718

== ENCOUNTER 2024-07-02 18:25 | Outpatient (CLI) | payer MEDICAID, SELFPAY ==
[2024-07-02 18:59] LABS: Albumin Level 4.8 g/dl (3.5-5.0); Basophils % 0.5 % (0.1-2.0); Chloride 103 mmol/L (98-107); Eosinophils # 0.1 K/mm3 (0.0-0.4); Eosinophils % 1.6 % (0.1-12.0); Hematocrit 47.5 % (42.0-52.0); Hemoglobin 15.7 g/dL (14.1-18.0); Lymphocytes % 31.7 % (10-50); Mean Corpuscular HGB Conc 33.1 g/dL (31.8-35.4); Mean Corpuscular Hemoglobin 30.8 pg (27.0-31.2); Mean Corpuscular Volume 93.1 fl (80-94); Monocytes # 0.5 K/mm3 (0.1-1.0); Monocytes % 8.2 % (1.7-9.3); Neutrophils # 3.6 K/mm3 (1.8-7.8); Neutrophils % 57.8 % (37.0-80.0); Platelet Count 267 K/mm3 (142-424); Potassium 4.6 mmoL/L (3.5-5.1); Red Cell Distribution Width 12.7 % (11.5-17.5); Sodium 141 mmol/L (136-145); White Blood Count 6.2 K/mm3 (4.8-10.8)
[2024-07-02 19:02] LABS: Alanine Aminotransferase 15 U/L (12-78); Alkaline Phosphatase 61 U/L (38-126); Anion Gap 15.6 mEq/L (5-15); Aspartate Amino Transferase 28 U/L (17-59); Bilirubin,Total 0.7 mg/dl (0.2-1.3); Blood Urea Nitrogen 12 mg/dl (9-20); Calcium 9.8 mg/dl (8.4-10.2); Carbon Dioxide 27 mmol/L (22.0-30.0); Cholesterol 152 mg/dl (140-200); Estimated Glomerular Filt Rate 97 ml/min (>60); GFR (African American) 118 ML/MIN (>60); Globulin 2.4 g/dL (1.3-3.2); Glucose 85 mg/dl (74-100); Total Protein,Serum 7.2 g/dl (6.3-8.2); Triglycerides 76 mg/dl (30-150); VLDL Cholesterol 15 mg/dL (0-40)
[2024-07-02 19:03] LABS: Chol/HDL Ratio 3.1 (1-3.5); HDL Cholesterol 49 mg/dl (40-60)
[2024-07-02 19:13] LABS: Direct LDL Cholesterol 88.07 mg/dL (100-129)
[2024-07-02 19:33] LABS: Thyroid Stimulating Hormone 2.02 uIU/mL (0.465-4.68)
[2024-07-02 20:19] LABS: 25-OH Vitamin D, Total 40.5 ng/mL (30-100)
== END 2024-07-02 23:59 | disposition home or self-care (01) ==
LOC: LAB.DROPOF 18:25
PROVIDERS: PCP Nurse Practitioner Family; Visit Provider Nurse Practitioner Family
DX: R06.02 Shortness of breath (principal); I10 Essential (primary) hypertension
CPT/HCPCS: 80053; 80061; 82306; 84443; 85025

== ENCOUNTER 2024-07-12 10:11 | Outpatient (RCR) | payer OTHER, MEDICAID, SELFPAY ==
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
== END 2024-07-12 23:59 | disposition home or self-care (01) ==
LOC: PT 10:11
PROVIDERS: Visit Provider Orthopaedic Surgery
DX: M79.605 Pain in left leg (principal); R53.1 Weakness; S81.812A Laceration without foreign body, left lower leg, initial encounter
CPT/HCPCS: 97163

== ENCOUNTER 2024-07-24 14:32 | Outpatient (CLI) | payer MEDICAID, SELFPAY ==
[2024-07-24] MEDS: ALBUTEROL 0.083% 2.5 MG/3 ML NEB IH (15:31)
== END 2024-07-24 23:59 | disposition home or self-care (01) ==
LOC: RT 14:33
PROVIDERS: PCP Nurse Practitioner Family; Visit Provider Nurse Practitioner Family
DX: R06.02 Shortness of breath (principal)
CPT/HCPCS: 94010; 94618; 94727; 94729; J7613

== ENCOUNTER 2024-08-13 11:00 | Outpatient (RCR) | payer OTHER, MEDICAID, SELFPAY ==
--- NOTE | 2024-08-13 13:02 | HMH.RHREAS ---
Rehab Reassessment Rehab OP Re-assessment Start: 08/09/24 17:05 Freq: Status: Active Protocol: Document 08/13/24 12:52 PHOAPRIL (Rec: 08/13/24 13:02 PHORTAZ [id number]) E-signed By Elio Knapp, PT Rehab Re-assessment Subjective Subjective Pt reports no c/o pain with any ADLs or every day mobility activities. Has not tried running yet. Continues to c/o minimal tenderness in the anterior L thigh. Objective Objective Notes Pain: 0/10 currently. TTP: 1/4 L anterior thigh. MMT L LE: HIP FLEX 5/5, HIP ABD 5/5, HIP IR 5/5, HIP ER 5/ 5, KNEE FLEX 5/5, KNEE EXT 5/5 . AROM: L HIP WNL throughout. Gait: No antalgic gait noted at this time on L LE. Running gait: Pt has not attempted running at this pint out of fear of re-injury, despite assurances from bilingual medical assistant that re- injury would be highly unlikely. Assessment Progress Assessment Progressing as Expected Assessment Notes Pt has shown significant improvements in strength throughout the L LE, overall pain, and gait pattern with walking. He has not attempted running, which is one of his preferred recreational activities. Skilled therapy remains indicated to improve pain to baseline status as able and allow pt to return to prior recreational activity. Patient goals met ST/4 LT/7 Plan Plan Continue per initial POC. Frequency of Therapy 1-2 x/wk Duration of therapy 4 wks Time and Billing Re-Eval Time 12 Re-Eval Billing Units 1 Charge for PT reassessment? Yes PHYSICIAN CERTIFICATION: I certify the specified therapy services for Noel Lara are required, authorized, and reviewed every 30 days.
== END 2024-08-13 23:59 | disposition home or self-care (01) ==
LOC: PT 11:00
PROVIDERS: Visit Provider Orthopaedic Surgery
DX: M79.662 Pain in left lower leg (principal); S81.812A Laceration without foreign body, left lower leg, initial encounter
CPT/HCPCS: 97110; 97164; 97530

== ENCOUNTER 2024-09-04 14:06 | Outpatient (CLI) | payer MEDICAID, SELFPAY ==
--- NOTE | 2024-09-04 14:09 | XR_ITS ---
FINAL REPORT TECHNIQUE: Chest PA & Lateral CLINICAL HISTORY: SOB COMPARISON: 10/25/2023 FINDINGS: 2 views of the chest were performed. The heart size is normal. The mediastinum is within normal limits. There is no acute cardiopulmonary process. There are no pleural effusions. A calcified granuloma is once again noted in the right upper lobe. There is no pneumothorax. The bony thorax appears intact. IMPRESSION: No acute cardiopulmonary process. Reviewed, Interpreted and Dictated by Bj Rashid MD Transcribed by Rosa Cm Authenticated and . [facility]
== END 2024-09-04 23:59 | disposition home or self-care (01) ==
LOC: RAD 14:07
PROVIDERS: PCP Nurse Practitioner Family; Visit Provider Internal Medicine Pulmonary Disease
DX: R06.02 Shortness of breath (principal)
CPT/HCPCS: 71046

== ENCOUNTER 2025-01-29 09:48 | Outpatient (CLI) | payer MEDICAID, SELFPAY ==
--- OUTSIDE RECORDS SUMMARY | 2025-01-29 09:51 | XMS_ITS | Clinical Summary ---
Author Organization Healthcare Address [address] [place] [address] Care Team Providers Care Mortar Worker Name Role Phone Lana Ruiz Primary Care Provider [phone] Allergies No known active allergies Medications No known medications Family History Medical History Relation Name Comments COPD Other 1 Cirrhosis Other 2 Hypertension Other 3 Other cancer Other 4 Relation Name Status Comments Other 1 Other 2 Other 3 Other 4 Social History Tobacco Use Types Packs/Day Years Used Date Smoking Tobacco: Never Alcohol Use Standard Drinks/Week Comments Yes 0 (1 standard drink = 0.6 oz pure alcohol) Alcoholic Drinks/day: Occasional alcohol use CAGE ASSESSMENT Answer Date Recorded Cage unable to access Not on file 03/23/2024 Maximum number of drinks you had on a given occasion in the last month? 0 drinks 03/23/2024 How many alcoholic Beverages do you typically drink in a week? 0 - 7 per week 03/23/2024 Have you ever felt you should CUT down on your d rinking? 0 03/23/2024 Have you been ANNOYED by peo ple criticizing your drinking? 0 03/23/2024 Have you felt GUILTY about your drinking? 0 03/23/2024 Have you had a drink first t angelito in the morning (EYE-STORE MANAGER) to steady your nerves or to get rid of a hangover? 0 03/23/2024 CAGE Questionnaire Score 0 024 Sex and Gender Information Value Date Recorded Sex Assigned at Not on file Legal Sex Male 6:00 PM EDT Gender Identity Not on file Sexual Orientation Not on file Last Filed Vital Signs Vital Sign Reading Time Taken Comments Blood Pressure 143/94 03/23/2024 3:44 AM EDT Pulse 73 03/23/2024 3:44 AM EDT Temperature 36.6 C (97.8 F) 03/23/2024 3:44 AM EDT Respiratory Rate 19 03/23/2024 3:44 AM EDT Oxygen Saturation 96% 03/23/2024 3:44 AM EDT Inhaled Oxygen Concentration - - Weight 63.5 kg (140 lb) 03/23/2024 3:53 AM EDT Height 180.3 cm (5' 11 ) 03/23/2024 3:53 AM EDT Body Mass Index 19.53 03/23/2024 3:53 AM EDT Plan of Treatment Health Maintenance Due Date Last Done Comments [facility]-Depression Screening 1991 [facility]-HIV Screening 1991 [facility]-Hepatitis C Screening 1991 [facility]-/Child/Adol SDOH Screenings 1991 [facility]-Varicella Vaccines (1 of 2 - 13+ 2-dose series) 02/02/2004 HPV Vaccines (1 - Male 3-dose series) 2006 [facility]- SDOH Screenings 2009 [facility]-Adult SDOH Screenings 2009 [id number] Vaccine (1 - season) 2024 [facility]-Influenza Vaccine (#1) 2025 [facility]-DTaP,Tdap,and Td Vaccines (3 - Td or Tdap) 10/16/2025 10/17/2015, 05/07/2002 [facility]-Zoster Vaccines (1 of 2) 2041 [facility]-Hepatitis B Vaccines Completed 000, 09/13/1999, 08/11/1999 [facility]-HIB Vaccines Aged Out No longer e ligible based on patient's age to complete this topic [facility]-Hepatitis A Vaccines Aged Out No longer eligible based on patient's age to complete this topic [facility]-IPV Vaccines Aged Out No longer e ligible based on patient's age to complete this topic [facility]-Pneumococcal Vaccine: Pediatrics (0 to 5 Years) and At-Risk Patients (6 to 49 Years) Aged Out No longer eligible b ased on patient's age to complete this topic [facility]-Rotavirus Vaccines Aged Out No lo nger eligible based on patient's age to complete this topic Insurance [employer] Care Teams Mortar Worker Relationship Specialty Start Date End Date Lana Ruiz PA [address] [place] [address] PCP - General 11/06/20
--- OUTSIDE RECORDS SUMMARY | 2025-01-29 09:51 | XMS_ITS | Clinical Summary ---
[facility] Address [address] [place] [address] Care Team Providers Care Accounts Payable Accountant Name Role Phone Provider, No Known Primary Care Provider Unavail able Allergies No known active allergies Medications naproxen (NAPROSYN) 375 MG tablet Take 1 tablet by mouth 2 (Two) Times a Day As Needed for Mild Pain. 14 tablet 08/04/2022 Active guaifenesin-dex tromethorphan (MUCINEX DM) 30-600 MG tablet sustained-relea se 12 hour tablet Take 1 tablet by mouth 2 (Two) Times a Day As Needed (congestion). 30 tablet 01/23/2023 Active fluticasone (FLONASE) 50 MCG/ACT nasal spray 2 sprays into the nostril(s) as directed by provider Daily. 100 mL 01/23/2023 Active Social History Tobacco Use Types Packs/Day Years Used Date Smoking Tobacco: Never Assessed Abuse Screen Answer Date Recorded Unsafe at Home or Work/School Not on file Feels Threatened by Someone? Not on file 12/2023 Does Anyone Keep You from Co ntacting Others or Doint Things Outside the Home? Not on file 01/31/2024 Physical Sign of Abuse Present Not on file 0 01/31/2024 Housing Stability Answer Date Recorded Current Living Arrangements Not on file 03/26 Potentially Unsafe Housing Conditions Not on courtney e 04/07/2023 Family and Community Support Answer Rogelio e Recorded Help with Day-to-Day Activities Not on file 04/07/2023 Lonely or Isolated Not on file 04/07/2023 Employment Answer Date Recorded Do you want help finding or keeping work or a remington b? Not on file 04/07/2023 Disabilities Answer Date Recorded Concentrating, Remembering, or Making Decisions Difficulty Not on file 04/07/2023 Doing Errands Independently Difficulty Not on fi le 04/07/2023 Education Answer Date Recorded Help with school or training? Not on file Preferred Language Not on file 04/07/2023 Sex and Gender Information Value Date Recorded Sex Assigned at Not on file Legal Sex Male 8:54 AM EST Gender Identity Not on file Sexual Orientation Not on file Last Filed Vital Signs Vital Sign Reading Time Taken Comments Blood Pressure 115/81 01/23/2023 6:16 PM EDT Pulse 105 01/23/2023 6:16 PM EDT Temperature 36.6 C (97.8 F) 01/23/2023 6:16 PM EDT Respiratory Rate 20 01/23/2023 6:16 PM EDT Oxygen Saturation 96% 01/23/2023 6:16 PM EDT Inhaled Oxygen Concentration - - Weight 63.5 kg (140 lb) 01/23/2023 6:16 PM EDT Height 182.9 cm (6') 01/23/2023 6:16 PM EDT Body Mass Index 18.99 01/23/2023 6:16 PM EDT Plan of Treatment Health Maintenance Due Date Last Done Comments ANNUAL PHYSICAL 03/29/2023 HEPATITIS C SCREENING 03/29/2023 COVID-19 Vaccine ( - 2023-2 5 season) 2024 INFLUENZA VACCINE 03/26/2025 TDAP/TD VACCINES (3 - Td or Tdap) 10/16/2025 10/17/2015, 05/07/2002 Pneumococcal Vaccine 0-49 Aged Out No longer eligible based on patient's age to complete this topic Insurance [employer] Care Teams Accounts Payable Accountant Relationship Specialty Start Date End Date Provider, [place] [address] PCP - General 08/04/22
--- NOTE | 2025-01-29 10:00 | FL_ITS ---
FINAL REPORT CLINICAL HISTORY: choking, trouble swallowing 1.10 fluoro time 471.49 dap FINDINGS: ESOPHAGRAM HISTORY: Trouble swallowing, feels like things getting stuck in throat. PROCEDURE: The patient ingested barium. Effervescent crystals were also administered. Spot and overhead films were obtained. 41 total images were performed. FINDINGS: The esophagus is normal. There is no hiatal hernia. There is no gastroesophageal reflux demonstrated . Peristalsis is normal. 13 mm barium tablet passes easily through the esophagus and into the stomach. FLUOROSCOPY TIME: 1 minute, 10 seconds Radiation dose in DAP: 471.49 uGym2 IMPRESSION: Normal esophagram. Reviewed, Interpreted and Dictated by Bj Rashid MD Transcribed by Kyleigh Zhao PA-C Authenticated and [facility]
[2025-01-29] MEDS: BARIUM SULFATE (E-Z-HD 340GM);135ML BOTTLE 135 ML PO (10:20)
[2025-01-29] MEDS: BARIUM SULFATE(E-Z-AC);750ML BOTTLE 750 ML PO (10:20)
[2025-01-29] MEDS: E-Z-GASII EFFERVESCENT GRANULES;1PK 1 EACH PO (10:20)
== END 2025-01-29 23:59 | disposition home or self-care (01) ==
LOC: RAD 09:48
PROVIDERS: PCP Family Medicine; Visit Provider Family Medicine
DX: R13.10 Dysphagia, unspecified (principal); R09.89 Other specified symptoms and signs involving the circulatory and respiratory systems
CPT/HCPCS: 74220